=== PATIENT | male | born 1970 | race Two or more races ===

== ENCOUNTER 2020-02-03 15:26 | Emergency (ER) | payer OTHER, SELFPAY ==
[2020-02-03 17:16] VITALS: BP 134/96; PULSE 87; RESP 18; TEMP 36.8; O2SAT 100; BMI 21.7
--- NOTE | 2020-02-03 22:31 | PC.NURSE ---
PT FOUND TO LWT AT THIS TIME DURING REASSESSMENT. PATIENT AND CAREGIVER NOT IN BATHROOMS OR SITTING OUTSIDE ED.
== END 2020-02-03 23:11 | disposition left against medical advice (07) ==
LOC: HO.ED 22:50
PROVIDERS: Emergency Provider Internal Medicine; PCP Internal Medicine
DX: S61.213A Laceration without foreign body of left middle finger without damage to nail, initial encounter (principal); L03.012 Cellulitis of left finger; M79.645 Pain in left finger(s); Y28.9XXA Contact with unspecified sharp object, undetermined intent, initial encounter; Y93.9 Activity, unspecified; Y92.9 Unspecified place or not applicable
CPT/HCPCS: 99281; 99282

== ENCOUNTER 2020-02-04 16:58 | Emergency (ER) | payer OTHER, SELFPAY ==
--- NOTE | 2020-02-04 | XR_ITS ---
EXAMINATION: XR FINGER, LEFT CLINICAL INFORMATION: Laceration. Nonverbal. Appears cellulitic. COMPARISON: None TECHNIQUE: Three views of the left long finger. FINDINGS: Diffuse osteopenia. There is swelling of the proximal aspect of the third digit. No radiopaque foreign body or soft tissue gas. No fracture or dislocation seen. The third proximal interphalangeal joint remains in flexion and third distal interphalangeal joint and extension on all images, limiting evaluation. IMPRESSION: Third digit soft tissue swelling but no acute osseous abnormality seen.
[2020-02-04 17:33] VITALS: BP 140/79; PULSE 98; RESP 16; TEMP 36.6; O2SAT 99; BMI 22.8
--- NOTE | 2020-02-04 19:53 | ED.WOUNDLAC ---
HPI - Wound/Laceration General Chief Complaint: Wound/Laceration Stated Complaint: RED INFLAMED SKIN/FINGER Time Seen by Provider: 02/04/20 18:42 Source: patient and family ( sister who is the featheredger and reducer machine/guardian) Mode of arrival: ambulatory Limitations: language barrier (Patient is nonverbal) History of Present Illness HPI narrative: 49-year-old female presenting to the ED with complaints of a laceration that occurred approximately 2 days ago to left middle finger with tender to palpation, warmth and mild swelling. Denies any fevers or any other symptoms complaints or concerns at this time. Related Data Home Medications Medication Instructions Recorded Confirmed blood sugar diagnostic #10 ea 02/04/20 docusate sodium 100 mg capsule 100 mg PO BID 02/04/20 mirtazapine 15 mg tablet 15 mg PO BEDTIME 02/04/20 Previous Rx's Medication Instructions Recorded cephalexin 500 mg PO Q8H 10 Days #300 ml 02/04/20 doxycycline calcium 10 ml PO BID 10 Days #200 ml 02/04/20 Allergies Allergy/AdvReac Type Severity Reaction Status Date / Time No Known Allergies Allergy Mild NONE Verified 02/04/20 17:33 Review of Systems Review of Systems: Yes all other systems are reviewed and are negative Constitutional: Constitutional: Reports as per HPI, Denies fever(s) and Denies weakness Eyes: Eyes: Reports as per HPI ENT: Reports as per HPI Cardiovascular: Cardiovascular: Reports as per HPI Respiratory: Respiratory: Reports as per HPI Gastrointestinal: Gastrointestinal: Reports as per HPI Genitourinary: Genitourinary: Reports as per HPI Musculoskeletal: Musculoskeletal: Reports as per HPI, Denies deformity, Reports arthralgias, Reports joint swelling, Denies limited range of motion, Denies muscle weakness, Denies numbness, Denies stiffness and Denies tingling Integumentary/Breasts: Skin/Breast: Reports as per HPI Neurologic: Reports as per HPI, Denies numbness, Denies tingling and Denies weakness Psychiatric: Psychiatric: Reports as per HPI Endocrine: Endocrine: Reports as per HPI Hematologic/Lymphatic: Hematologic/Lymphatic: Reports as per HPI Allergic/Immunologic: Allergic/Immunologic: Reports as per HPI [facility] Past Medical History Attestation statement: The following information was validated with the patient. Medical History Diabetes Hyperlipidemia No known health problems Social History Social History Alcohol intake: never Smoked in Last 30 Days: No Use of substances other than those prescribed or required for medical reasons: No Advance Directives: No Advance Directives Information Provided: Yes Physical Exam Vital Signs and I&O and Narrative: Vital Signs and I&O: Vital Signs Temp 98 F 02/04/20 17:33 Pulse 98 02/04/20 17:33 Resp 16 02/04/20 17:33 BP 140/79 H 02/04/20 17:33 Pulse Ox 99 02/04/20 17:33 Intake & Output 02/04/20 02/04/20 02/05/20 06:59 18:59 06:59 Weight 68 kg Body Mass Index 22.8 Const: General: cooperative, healthy appearing, comfortable, no acute distress, well developed, alert, awake and Physically active Nutritional Appearance: average body habitus and well nourished Orientation/consciousness: patient oriented x3 Limitations: language barrier ( Nonverbal due to learning disorder) HENMT: Head: Yes normal to inspection, Yes No palpable skull fracture present, Yes normocephalic and Yes atraumatic Ears: hearing grossly normal bilaterally General nose exam: Normal external nose present Face and sinus: Yes normal facial exam Mouth: moist mucous membranes Eyes: General: appearance normal, both eyes and all related structures Visual Allen: normal visual allen by confrontation Alignment and Position: alignment normal Periorbital: periorbital findings normal Eyelids: Yes eyelids normal Conjunctivae: conjunctivae normal Sclerae: sclerae normal Pupils: Equal, round and reactive pupils present EOM: EOMs intact bilaterally Neck: Neck: Yes normal visual inspection, Yes full ROM, Yes no lymphadenopathy, Yes no meningeal signs, Yes trachea midline and Yes supple Chest: Chest palpation & inspection: normal inspection of the chest Resp: Effort & Inspection: normal respiratory effort and able to speak in complete sentences Auscultation: clear to auscultation bilaterally, no crackles, no rales, no rhonchi and no wheezes Cardio: Rate: regular rate Rhythm: regular rhythm Heart sounds: S1 normal heart sound present and S2 normal heart sound present Peripheral pulses: Peripheral pulses 2+ throughout GI: Inspection: Yes normal to inspection Palpation (GI): Soft to palpation, nontender and No hepatosplenomegaly present Percussion: Yes normal to percussion Auscultation: normal bowel sounds : General: Yes no CVA tenderness Back/Spine/Pelvis: Back: no CVA tenderness Cervical Spine: normal cervical lordosis and cervical ROM normal Thoracic/Lumbar Spine: thoracic and lumbar spine normal to inspection and thoraco-lumbar ROM normal Skin: General skin exam: no rashes or lesions noted, elasticity normal and turgor normal Trauma: no lacerations or abrasions Wounds: no wounds Hair: normal Nails: normal Neuro: General: patient oriented x3 and no meningeal signs Cranial nerves: Yes CN's II-XII intact bilaterally and Yes Equal, round and reactive pupils present Cognition (Neuro): normal cognition Gait exam (Neuro): Normal gait present Motor exam (neuro): 5/5 motor strength present throughout Extrem: General: Yes normal to inspection, Yes full ROM, Yes capillary refill normal, Yes no clubbing, cyanosis or edema, No no pedal edema, No no calf tenderness, Yes normal gait and No edema Right upper extremity: normal to inspection, full ROM and normal capillary refill; no edema Left upper extremity: normal to inspection, full ROM, normal capillary refill and hand Details: normal capillary refill, neurosensory exam normal, tendon exam normal, tenderness, warmth, swelling and laceration ( to left middle finger at the proximal aspect Mendez aspect right at crease of the joint with protrusion of tissue. No streaking/induration / fluctuance noted.); no edema Right lower extremity: normal to inspection, full ROM and normal capillary refill; no edema Left lower extremity: normal to inspection, full ROM and normal capillary refill; no edema Psych: Appearance: grossly normal and well kempt Mental Status: mental status grossly normal Speech and movement: Normal speech and movement present and Clear speech present Affect: normal affect Attitude: cooperative Thought process: Normal thought process present Thought content: Normal thought content present Insight: Good insight present (Psych) Judgement: Good judgement present (Psych) Course Course Course Narrative: X-ray negative for any acute fractures or any other acute processes only mild soft tissue swelling. Will DC home with antibiotics and symptomatic treatment along with instructions to follow-up with wound clinic instructions return if any new or worsening symptoms. Patient and sister who is guardian at bedside understands agrees the plan. MDM - Wound/Laceration MDM Narrative Medical decision making narrative: 49-year-old female presenting to the ED with complaints of a laceration that occurred approximately 2 days ago to left middle finger with tender to palpation, warmth and mild swelling. Denies any fevers or any other symptoms complaints or concerns at this time. - Concern for Fracture versus osteomyelitis versus cellulitic infection versus foreign bodies. - Plan: Xray Then cleaned the wound and placed Steri-Strips. Discharge Plan Discharge Clinical Impression: Cellulitis, Laceration Patient Disposition: Home, Self-Care Instructions: Cellulitis (ED) Additional Instructions: please follow-up with [facility] at [address] [place] [address] in [facility] #[id number] within the next 2 days. Prescriptions: New doxycycline calcium 50 mg/5 mL syrup 10 ml PO BID 10 Days Qty: 200 RF: 0 cephalexin 250 mg/5 mL suspension for reconstitution 500 mg PO Q8H 10 Days Qty: 300 RF: 0 Print Language: Maori
[2020-02-04 20:33] VITALS: BP 128/76; PULSE 69; RESP 16; TEMP 37.1; O2SAT 99
== END 2020-02-04 20:30 | disposition home or self-care (01) ==
PROVIDERS: Emergency Provider Internal Medicine; PCP Internal Medicine
DX: L03.012 Cellulitis of left finger (principal); M79.645 Pain in left finger(s)
CPT/HCPCS: 73140; 99283; 99284

== ENCOUNTER 2020-02-07 12:09 | Outpatient (RCR) | payer OTHER, SELFPAY | END 2020-03-12 13:02 | disposition home or self-care (01) | LOC: HO.WCC 12:09 | PROVIDERS: PCP Internal Medicine; Visit Provider Physician Assistant Surgical | DX: S65.21 Laceration of superficial palmar arch (principal); I10 Essential (primary) hypertension; E11.9 Type 2 diabetes mellitus without complications; Z79.84 Long term (current) use of oral hypoglycemic drugs | CPT/HCPCS: 99212 ==

== ENCOUNTER 2021-08-12 12:38 | Outpatient (REF) | payer OTHER, SELFPAY ==
[2021-08-12 13:00] LABS: MANUAL DIFF FLAG NO
[2021-08-12 13:23] LABS: Basophils Percent Auto 0.5 % (0-2); Eosinophils Absolute Auto 0.4 X10*3/uL (0.0-0.4); Eosinophils Percent Auto 6.1 % (0-4); Hematocrit 40.1 % (42.0-52.0); Imm Gran Abs Auto 0.02 X10*3/uL (0.00-0.03); Imm Gran Pct Auto 0.3 % (0.0-0.4); Lymphocytes Absolute Auto 1.7 X10*3/uL (1.2-4.9); Lymphocytes Percent Auto 29.8 % (20-40); Mean Corpuscular HGB Conc 32.4 g/dl (31.0-36.0); Mean Corpuscular Hemoglobin 29.9 pg (27.0-33.0); Mean Corpuscular Volume 92.2 fL (80.0-98.0); Mean Platelet Volume 11.2 fL (9.4-12.4); Monocytes Absolute Auto 0.5 X10*3/uL (0.1-1.2); Monocytes Percent Auto 8.5 % (2-11); Neutrophils Absolute Auto 3.1 x10*3/uL (2.0-8.3); Neutrophils Percent Auto 54.8 % (45-73); Platelet Count 193 X10*3/uL (160-400); Red Blood Count 4.35 X10*6/uL (4.60-5.80); Red Cell Distribution Width 13.1 % (11.0-16.0); White Blood Count 5.7 X10*3/uL (4.8-10.8)
[2021-08-12 13:30] LABS: Estimated Average Glucose 114 mg/dL; Hemoglobin A1c % 5.6 %
[2021-08-12 13:55] LABS: Appearance Urine CLEAR; Color Urine YELLOW; Glucose Urine UA NEG (NEG); Leukocyte Esterase Urine NEG (NEG); Nitrite Urine NEG (NEG); Specific Gravity - Urine 1.025 (1.005-1.025); Urine Blood NEG (NEG); Urine Ketones NEG (NEG); Urine Protein NEG (NEG-TRACE)
[2021-08-12 14:05] LABS: Prostate Specific Antigen Scr 1.08 ng/mL (<0.05-4.0); TSH reflex Free T4 3.84 uIU/mL (0.32-4.0); Vitamin D 25-OH Total 13.5 ng/mL (>30)
[2021-08-12 14:08] LABS: Alanine Aminotransferase 17 U/L (0-40); Albumin Level 4.5 g/dL (3.5-5.0); Alkaline Phosphatase 65 U/L (39-117); Anion Gap 11 (12-20); Aspartate Amino Transferase 16 U/L (5-37); Blood Urea Nitrogen 20 mg/dL (9-16); Calcium 9.7 mg/dL (8.4-10.2); Carbon Dioxide 28 mmol/L (22-29); Chloride 105 mmol/L (96-108); Cholesterol 216 mg/dL; Estimated Glomerular Filt Rate > 60; Glucose Fasting 100 mg/dL (60-99); HDL Cholesterol 55 mg/dL; LDL Cholesterol Calculated 131 mg/dl; Potassium 4.2 mmol/L (3.3-5.1); Sodium 140 mmol/L (135-145); Total Protein 7.4 g/dL (6.5-8.0); Triglycerides 154 mg/dL
[2021-08-12 14:36] LABS: Creatinine Urine 181.08 mg/dL; Microalbum/Creatinine Ratio Ur 7.7 ug/mg cr
== END 2021-08-12 12:39 | disposition home or self-care (01) ==
LOC: HO.LAB 12:38
PROVIDERS: PCP Internal Medicine; Visit Provider Internal Medicine
DX: Z00.00 Encounter for general adult medical examination without abnormal findings (principal); Z12.5 Encounter for screening for malignant neoplasm of prostate; I10 Essential (primary) hypertension; E78.00 Pure hypercholesterolemia, unspecified; E55.9 Vitamin D deficiency, unspecified; E11.9 Type 2 diabetes mellitus without complications
CPT/HCPCS: 36415; 80053; 80061; 81003; 82043; 82306; 83036; 84153; 84443; 85025

== ENCOUNTER 2022-01-26 13:32 | Outpatient (REF) | payer OTHER, SELFPAY ==
[2022-01-26 16:43] LABS: Hematocrit 42.6 % (42.0-52.0); Hemoglobin 13.7 g/dl (14.0-18.0); Mean Corpuscular HGB Conc 32.2 g/dl (31.0-36.0); Mean Corpuscular Hemoglobin 29.7 pg (27.0-33.0); Mean Corpuscular Volume 92.4 fL (80.0-98.0); Mean Platelet Volume 12.4 fL (9.4-12.4); Platelet Count 193 X10*3/uL (160-400); Red Blood Count 4.61 X10*6/uL (4.60-5.80); Red Cell Distribution Width 12.9 % (11.0-16.0)
[2022-01-26 17:02] LABS: Alanine Aminotransferase 21 U/L (0-40); Albumin Level 4.7 g/dL (3.5-5.0); Alkaline Phosphatase 64 U/L (39-117); Anion Gap 17 (12-20); Aspartate Amino Transferase 18 U/L (5-37); Bilirubin Total 0.5 mg/dL (0.0-1.0); Blood Urea Nitrogen 17 mg/dL (9-16); Calcium 9.8 mg/dL (8.4-10.2); Carbon Dioxide 26 mmol/L (22-29); Chloride 104 mmol/L (96-108); Cholesterol 137 mg/dL; Estimated Glomerular Filt Rate > 60; Glucose Fasting 84 mg/dL (60-99); HDL Cholesterol 52 mg/dL; LDL Cholesterol Calculated 36 mg/dl; Potassium 4.6 mmol/L (3.3-5.1); Sodium 142 mmol/L (135-145); Total Protein 7.7 g/dL (6.5-8.0); Triglycerides 247 mg/dL
== END 2022-01-26 13:33 | disposition home or self-care (01) ==
LOC: HO.HMGCLDS 13:32
PROVIDERS: PCP Internal Medicine; Visit Provider Emergency Medicine
DX: E78.00 Pure hypercholesterolemia, unspecified (principal); R53.83 Other fatigue
CPT/HCPCS: 36415; 80053; 80061; 85027

== ENCOUNTER 2022-10-18 12:37 | Outpatient (REF) | payer OTHER, SELFPAY ==
[2022-10-18 12:51] LABS: MANUAL DIFF FLAG NO
[2022-10-18 14:31] LABS: Basophils Percent Auto 0.6 % (0-2); Eosinophils Absolute Auto 0.3 X10*3/uL (0.0-0.4); Eosinophils Percent Auto 4.5 % (0-4); Hematocrit 42.3 % (42.0-52.0); Hemoglobin 13.4 g/dl (14.0-18.0); Imm Gran Abs Auto 0.02 X10*3/uL (0.00-0.03); Imm Gran Pct Auto 0.3 % (0.0-0.4); Lymphocytes Absolute Auto 1.7 X10*3/uL (1.2-4.9); Lymphocytes Percent Auto 26.3 % (20-40); Mean Corpuscular HGB Conc 31.7 g/dl (31.0-36.0); Mean Corpuscular Volume 94.8 fL (80.0-98.0); Mean Platelet Volume 12.1 fL (9.4-12.4); Monocytes Absolute Auto 0.5 X10*3/uL (0.1-1.2); Monocytes Percent Auto 7.8 % (2-11); Neutrophils Absolute Auto 3.9 x10*3/uL (2.0-8.3); Neutrophils Percent Auto 60.5 % (45-73); Platelet Count 198 X10*3/uL (160-400); Red Blood Count 4.46 X10*6/uL (4.60-5.80); Red Cell Distribution Width 13.2 % (11.0-16.0); White Blood Count 6.5 X10*3/uL (4.8-10.8)
[2022-10-18 14:50] LABS: Appearance Urine Clear; Color Urine Yellow; Glucose Urine UA Negative (Negative); Leukocyte Esterase Urine Negative (Negative); Nitrite Urine Negative (Negative); PH 6.5 (5.0-9.0); Specific Gravity - Urine 1.025 (1.005-1.025); Urine Blood Negative (Negative); Urine Ketones Negative (Negative); Urine Protein Negative (Neg-Trace)
[2022-10-18 14:58] LABS: Estimated Average Glucose 105 mg/dL; Hemoglobin A1c % 5.3 %
[2022-10-18 15:42] LABS: Alanine Aminotransferase 13 U/L (0-40); Albumin Level 4.5 g/dL (3.5-5.0); Alkaline Phosphatase 63 U/L (39-117); Anion Gap 12 (12-20); Aspartate Amino Transferase 16 U/L (5-37); Bilirubin Total 1.1 mg/dL (0.0-1.0); Blood Urea Nitrogen 22 mg/dL (9-16); Calcium 10.1 mg/dL (8.4-10.2); Carbon Dioxide 25 mmol/L (22-29); Chloride 107 mmol/L (96-108); Cholesterol 204 mg/dL; Estimated Glomerular Filt Rate > 60; Glucose Fasting 73 mg/dL (60-99); HDL Cholesterol 62 mg/dL; LDL Cholesterol Calculated 117 mg/dl; Potassium 4.1 mmol/L (3.3-5.1); Sodium 140 mmol/L (135-145); Total Protein 7.7 g/dL (6.5-8.0); Triglycerides 128 mg/dL
[2022-10-18 15:49] LABS: TSH reflex Free T4 4.91 uIU/mL (0.32-4.0); Vitamin D 25-OH Total 22.9 ng/mL (>30)
[2022-10-18 16:33] LABS: Free T4 (Free Thyroxine) 0.94 ng/dL (0.71-1.85)
== END 2022-10-18 12:38 | disposition home or self-care (01) ==
LOC: HO.LAB 12:37
PROVIDERS: PCP Internal Medicine; Visit Provider Internal Medicine
DX: E78.00 Pure hypercholesterolemia, unspecified (principal); E11.9 Type 2 diabetes mellitus without complications; E55.9 Vitamin D deficiency, unspecified; R30.0 Dysuria; I10 Essential (primary) hypertension
CPT/HCPCS: 36415; 80053; 80061; 81003; 82306; 83036; 84439; 84443; 85025

== ENCOUNTER 2023-01-04 09:37 | Emergency (ER) | payer OTHER, SELFPAY ==
[2023-01-04 10:24] VITALS: BP 137/75; PULSE 62; RESP 18; TEMP 36.6; O2SAT 99; BMI 23.6
[2023-01-04 11:45] LABS: MANUAL DIFF FLAG NO
[2023-01-04 11:47] LABS: Basophils Percent Auto 0.6 % (0-2); Eosinophils Absolute Auto 0.4 X10*3/uL (0.0-0.4); Eosinophils Percent Auto 5.4 % (0-4); Hematocrit 39.2 % (42.0-52.0); Hemoglobin 12.6 g/dl (14.0-18.0); Imm Gran Abs Auto 0.02 X10*3/uL (0.00-0.03); Imm Gran Pct Auto 0.3 % (0.0-0.4); Lymphocytes Absolute Auto 2.7 X10*3/uL (1.2-4.9); Lymphocytes Percent Auto 40.8 % (20-40); Mean Corpuscular HGB Conc 32.1 g/dl (31.0-36.0); Mean Corpuscular Hemoglobin 30.1 pg (27.0-33.0); Mean Corpuscular Volume 93.6 fL (80.0-98.0); Mean Platelet Volume 11.2 fL (9.4-12.4); Monocytes Absolute Auto 0.6 X10*3/uL (0.1-1.2); Monocytes Percent Auto 9.5 % (2-11); Neutrophils Absolute Auto 2.9 x10*3/uL (2.0-8.3); Neutrophils Percent Auto 43.4 % (45-73); Platelet Count 147 X10*3/uL (160-400); Red Blood Count 4.19 X10*6/uL (4.60-5.80); Red Cell Distribution Width 12.7 % (11.0-16.0); White Blood Count 6.6 X10*3/uL (4.8-10.8)
[2023-01-04 11:54] LABS: Appearance Urine Clear; Color Urine Yellow; Glucose Urine UA Negative (Negative); Leukocyte Esterase Urine Negative (Negative); Nitrite Urine Negative (Negative); PH 6.5 (5.0-9.0); Specific Gravity - Urine 1.025 (1.005-1.025); Urine Blood Negative (Negative); Urine Ketones Negative (Negative); Urine Protein Negative (Neg-Trace)
[2023-01-04 12:10] LABS: Alanine Aminotransferase 14 U/L (0-40); Albumin Level 4.3 g/dL (3.5-5.0); Alkaline Phosphatase 50 U/L (39-117); Anion Gap 11 (12-20); Aspartate Amino Transferase 16 U/L (5-37); Bilirubin Direct 0.2 mg/dL (0.0-0.5); Bilirubin Total 0.9 mg/dL (0.0-1.0); Blood Urea Nitrogen 17 mg/dL (9-16); Calcium 9.6 mg/dL (8.4-10.2); Carbon Dioxide 29 mmol/L (22-29); Chloride 107 mmol/L (96-108); Creatinine Clr Calc Pharmacy 73.3; Estimated Glomerular Filt Rate > 60; Glucose Random 78 mg/dL (60-115); Potassium 3.4 mmol/L (3.3-5.1); Sodium 144 mmol/L (135-145)
--- NOTE | 2023-01-04 12:46 | ED.GENADULT ---
HPI - General Adult General Chief complaint: Abdominal Pain Stated complaint: legs swollen Time Seen by Provider: 01/04/23 12:45 Source: patient, family, RN notes reviewed and old records reviewed Mode of arrival: ambulatory History of Present Illness HPI narrative: 52-year-old male with a past medical history of diabetes, insomnia, schizophrenia, HLD, cognitive impairment, presenting to the ED with sister c/o bilaterally swollen LE x2-3 days, decreased PO intake, and dark/red urine. History obtained from sister due to baseline cognitive impairment. Sister reports patient also pointing to left side. Denies known fever/chills, nausea/vomiting, diarrhea, CP/SOB Onset (ago): day(s) Related Data Home Medications Medication Instructions Recorded Confirmed blood sugar diagnostic #10 ea 02/04/20 10/14/22 docusate sodium 100 mg capsule 100 mg PO BID 02/04/20 10/14/22 aripiprazole 5 mg tablet 5 mg PO BEDTIME 10/14/22 10/14/22 prazosin 1 mg capsule 1 mg PO QPM 10/14/22 10/14/22 trazodone 50 mg tablet 50 mg PO BEDTIME PRN 10/14/22 10/14/22 Previous Rx's Medication Instructions Recorded mirtazapine 15 mg disintegrating 15 mg PO BEDTIME 30 days #30 tabs 10/24/20 tablet blood-glucose meter (FreeStyle #1 ea 08/11/21 Lite Meter kit) metformin 500 mg tablet,extended 500 mg PO DAILY 30 days #30 tabs 10/01/21 release 24 hr blood sugar diagnostic (FreeStyle 1 strip miscellaneous TID #100 10/29/21 Lite Strips) strips atorvastatin 10 mg tablet 10 mg PO BEDTIME 30 days #30 tabs 11/05/21 Allergies Allergy/AdvReac Type Severity Reaction Status Date / Time No Known Allergies Allergy Mild NONE Verified 10/14/22 13:27 Review of Systems Review of Systems: Constitutional: No Fever, No Chills, No Fatigue, No Malaise ENT/Mouth: No Ear Pain, No Nasal Congestion, No sore throat, No Rhinorrhea, No Swallowing Difficulty Eyes: No Eye Pain, No Swelling, No Redness, No Vision Changes Cardiovascular: No Chest Pain, No SOB,+Edema, No Palpitations Respiratory: No Cough, No Sputum, No Dyspnea Gastrointestinal: No Nausea, No Vomiting, No Diarrhea, No Constipation, No Abdominal pain Genitourinary: No Dysuria, No Urinary Frequency, +Hematuria, No Flank Pain, No Urinary Flow Changes Musculoskeletal: No joint pain, No Myalgias, No Joint Swelling Skin: No Skin Lesions, No rash Neuro: No Weakness, No Headache Yes all other systems are reviewed and are negative Constitutional: Constitutional: Reports as per [facility] Past Medical History Attestation statement: The following information was validated with the patient. Source: old records reviewed Medical History Abdominal pain Constipation Diabetes mellitus Insomnia Mixed hyperlipidemia Schizophrenia Surgical History No pertinent past surgical history Family History Family History Father Chronic mental illness Hypertension Diabetes CVD (cardiovascular disease) Mother Diabetes Hypertension CVD (cardiovascular disease) Sister Diabetes Social History Social History Housing: House Alcohol intake: never Patient Tobacco Use Status: Never used Tobacco Smoked in Last 30 Days: No e-Cigarette/Vaping Use: Never Used Second Hand Smoke Exposure: No Use of substances other than those prescribed or required for medical reasons: No Advance Directives: No service: No Current occupational status: disabled Cognitive needs: Yes Hearing needs: No Vision needs: No Physical Exam ED Vital Signs: Vital Signs - 24 hr 01/04/23 10:24 01/04/23 12:54 Temperature 98 F 98.6 F Pulse Rate 62 72 Respiratory Rate 18 16 Blood Pressure 137/75 136/80 Pulse Oximetry 99 98 Oxygen Delivery Method Room Air Room Air BMI result Body Mass Index 23.6 Const General: cooperative and no acute distress Orientation/consciousness: patient oriented x3 Limitations: no limitations HENMT Head: Yes normal to inspection and Yes atraumatic Ears: hearing grossly normal bilaterally General nose exam: Normal external nose present Face and sinus: Yes normal facial exam Eyes General: appearance normal, both eyes and all related structures EOM: EOMs intact bilaterally Neck Neck: Yes normal visual inspection and Yes no meningeal signs Chest Chest palpation & inspection: normal inspection of the chest, no crepitus and no tenderness Resp Effort & Inspection: normal respiratory effort and no respiratory distress Auscultation: clear to auscultation bilaterally, no rhonchi and no wheezes Cardio Rate: regular rate Heart sounds: S1 normal heart sound present and S2 normal heart sound present GI Inspection: Yes normal to inspection Palpation (GI): Soft to palpation, nontender, no guarding and not rigid General: Yes no CVA tenderness Back/Spine/Pelvis Back: no CVA tenderness Skin Rashes: no rashes Wounds: no wounds Neuro General: patient oriented x3, tone normal and no meningeal signs Cranial nerves: Yes CN's II-XII intact bilaterally Gait exam (Neuro): Normal gait present Extrem Other: +mild swelling noted to bilateral ankles, no pitting edema, no calf ttp Course Course Course Narrative: -1310--patient refusing to take his pants off for ultrasound, ultrasound canceled -9--no leukocytosis, H&H stable. Labs otherwise reassuring, BNP WNL, CPK WNL -UA not infected, no blood Results discussed with patient and sister with marshmallow maker including worrisome signs and symptoms and strict return precautions, and when to return to the emergency department. They verbalized understanding and feel safe for discharge at this time. Medical Decision Making Medical Decision Making [facility] Narrative: 52-year-old male with a past medical history of diabetes, insomnia, schizophrenia, HLD, cognitive impairment, presenting to the ED with sister c/o bilaterally swollen LE x2-3 days, decreased PO intake, and dark/red urine. On exam vital signs stable, NAD, nontoxic appearing, bilateral ankle swelling noted without LE pitting edema. No calf tenderness. Chest/abdomen without rash/erythema or tenderness, abdomen soft. No CVAT. Concern for ?DVT (although of lower suspicion) vs dependent edema vs UTI vs rhabdomyolysis vs renal stone. Lower suspicion for pyelo, pancreatitis, cholecystitis/advises without tenderness on exam. Unlikely fracture/sprain. Rule out metabolic abnormalities including dehydration. Low suspicion for pain/ACS. Plan: Labs, UA, venous duplex ultrasound Please refer to course for remaining clinical decision making, interpretation of labs/imaging results, and discussions with consultants and/or family members. Differential Diagnosis Differential Diagnoses: The differential diagnosis associated with the presentation includes As above Admission/Observation Consideration of admission/observation: Escalation of care including admission/observation considered Lab Data [facility] Lab Attestation statement: I reviewed the patient's lab results. 01/04/23 11:31 01/04/23 11:31 Labs: Lab Results 01/04/23 01/04/23 01/04/23 Range/Units 11:31 11:31 11:31 WBC 6.6 (4.8-10.8) X10*3/uL RBC 4.19 L (4.60-5.80) X10*6/uL Hgb 12.6 L (14.0-18.0) g/dl Hct 39.2 L (42.0-52.0) % MCV 93.6 (80.0-98.0) fL MCH 30.1 (27.0-33.0) pg MCHC 32.1 (31.0-36.0) g/dl RDW 12.7 (11.0-16.0) % Plt Count 147 L D (160-400) X10*3/uL MPV 11.2 (9.4-12.4) fL Immature Gran % (Auto) 0.3 (0.0-0.4) % Neut % (Auto) 43.4 L (45-73) % Lymph % (Auto) 40.8 H (20-40) % [place] % (Auto) 9.5 (2-11) % Eos % (Auto) 5.4 H (0-4) % Baso % (Auto) 0.6 (0-2) % Lymph # (Auto) 2.7 (1.2-4.9) X10*3/uL [place] # (Auto) 0.6 (0.1-1.2) X10*3/uL Eos # (Auto) 0.4 (0.0-0.4) X10*3/uL Baso # (Auto) 0.0 (0.0-0.2) X10*3/uL Abs Immat Gran (auto) 0.02 (0.00-0.03) X10*3/uL Absolute Neuts (auto) 2.9 (2.0-8.3) x10*3/uL Absolute Nucleated RBC 0.000 (0.0-0.012) X10*3/uL Nucleated RBC % (auto) 0.0 (0.0-0.2) /100WBC Sodium 144 (135-145) mmol/L Potassium 3.4 (3.3-5.1) mmol/L Chloride 107 (96-108) mmol/L Carbon Dioxide 29 (22-29) mmol/L Anion Gap 11 L (12-20) BUN 17 H (9-16) mg/dL Creatinine 1.14 (0.5-1.4) mg/dL Estim Creat Clear Calc 73.3 Estimated GFR > 60 Random Glucose 78 (60-115) mg/dL Calcium 9.6 (8.4-10.2) mg/dL Magnesium 2.2 (1.6-2.6) mg/dL Total Bilirubin 0.9 (0.0-1.0) mg/dL Direct Bilirubin 0.2 (0.0-0.5) mg/dL AST 16 (5-37) U/L ALT 14 (0-40) U/L Alkaline Phosphatase 50 (39-117) U/L Total Creatine Kinase 93 (38-174) U/L B-Natriuretic Peptide (<100) pg/mL Total Protein 7.0 (6.5-8.0) g/dL Albumin 4.3 (3.5-5.0) g/dL Lipase 27 (8-78) U/L Urine Color Yellow Urine Appearance Clear Urine pH 6.5 (5.0-9.0) Ur Specific [place] 1.025 (1.005-1.025) Urine Protein Negative (Neg-Trace) mg/dL Urine Glucose (UA) Negative (Negative) mg/dL Urine Ketones Negative (Negative) mg/dL Urine Blood Negative (Negative) Urine Nitrite Negative (Negative) Ur Leukocyte Esterase Negative (Negative) 01/04/23 Range/Units 11:31 WBC (4.8-10.8) X10*3/uL RBC (4.60-5.80) X10*6/uL Hgb (14.0-18.0) g/dl Hct (42.0-52.0) % MCV (80.0-98.0) fL MCH (27.0-33.0) pg MCHC (31.0-36.0) g/dl RDW (11.0-16.0) % Plt Count (160-400) X10*3/uL MPV (9.4-12.4) fL Immature Gran % (Auto) (0.0-0.4) % Neut % (Auto) (45-73) % Lymph % (Auto) (20-40) % [place] % (Auto) (2-11) % Eos % (Auto) (0-4) % Baso % (Auto) (0-2) % Lymph # (Auto) (1.2-4.9) X10*3/uL [place] # (Auto) (0.1-1.2) X10*3/uL Eos # (Auto) (0.0-0.4) X10*3/uL Baso # (Auto) (0.0-0.2) X10*3/uL Abs Immat Gran (auto) (0.00-0.03) X10*3/uL Absolute Neuts (auto) (2.0-8.3) x10*3/uL Absolute Nucleated RBC (0.0-0.012) X10*3/uL Nucleated RBC % (auto) (0.0-0.2) /100WBC Sodium (135-145) mmol/L Potassium (3.3-5.1) mmol/L Chloride (96-108) mmol/L Carbon Dioxide (22-29) mmol/L Anion Gap (12-20) BUN (9-16) mg/dL Creatinine (0.5-1.4) mg/dL Estim Creat Clear Calc Estimated GFR Random Glucose (60-115) mg/dL Calcium (8.4-10.2) mg/dL Magnesium (1.6-2.6) mg/dL Total Bilirubin (0.0-1.0) mg/dL Direct Bilirubin (0.0-0.5) mg/dL AST (5-37) U/L ALT (0-40) U/L Alkaline Phosphatase (39-117) U/L Total Creatine Kinase (38-174) U/L B-Natriuretic Peptide 18 (<100) pg/mL Total Protein (6.5-8.0) g/dL Albumin (3.5-5.0) g/dL Lipase (8-78) U/L Urine Color Urine Appearance Urine pH (5.0-9.0) Ur Specific [place] (1.005-1.025) Urine Protein (Neg-Trace) mg/dL Urine Glucose (UA) (Negative) mg/dL Urine Ketones (Negative) mg/dL Urine Blood (Negative) Urine Nitrite (Negative) Ur Leukocyte Esterase (Negative) Radiology Impression Discussion of test interpretation with radiology: I have reviewed the radiologist's reading. Independent Historian Clinical information obtained from an independent historian. History obtained from or confirmed by: Other (sister) External Record Review External record reviewed: Inpatient record, Office record, Outpatient record, Prior outpatient labs, Prior outpatient radiology, Primary care record and Outside ED record Tests considered The following testing was considered but not selected: As above Chronic Conditions Patient?s care impacted by: Other (cognitive impairment ) Discharge Plan Discharge Clinical Impression: Ankle swelling Patient Disposition: Home, Self-Care Instructions: Swollen Joint (ED) Additional Instructions: Blood work and urine were reassuring Elevate legs at home Consider wearing compression stockings Please follow-up with primary care doctor If symptoms persist or worsen return to the ED Encourage fluid intake Los an?lisis de toño y orina fueron tranquilizadores. Elevar piernas en casa Considere usar medias de compresi?n Por favor susannah un seguimiento con el m?dico de atenci?n primaria. Si los s?ntomas persisten o empeoran, regrese al servicio de urgencias. Fomentar la ingesta de l?quidos. Prescriptions: No Action mirtazapine 15 mg tablet,disintegrating 15 mg PO BEDTIME 30 Days Qty: 30 5RF metformin 500 mg tablet extended release 24 hr 500 mg PO DAILY 30 Days Qty: 30 5RF FreeStyle Lite Strips Strip 1 strip miscellaneous TID Qty: 100 12RF atorvastatin 10 mg tablet 10 mg PO BEDTIME 30 Days Qty: 30 2RF (DME) FreeStyle Lite Strips Strip See Rx Instructions .ROUTE .MEDSUPPLY Qty: 10 Rx Instructions: As directed docusate sodium 100 mg capsule 100 mg PO BID aripiprazole 5 mg tablet 5 mg PO BEDTIME trazodone 50 mg tablet 50 mg PO BEDTIME PRN prazosin 1 mg capsule 1 mg PO QPM (DME) blood-glucose meter [FreeStyle Lite Meter] Kit See Rx Instructions .Route Qty: 1 0RF Rx Instructions: As directed Referrals: Rasta Barron MD [Primary Care Provider] - 5 days Print Language: Maori
[2023-01-04 12:54] VITALS: BP 136/80; PULSE 72; RESP 16; TEMP 37; O2SAT 98
--- NOTE | 2023-01-04 13:02 | PC.NURSE ---
full time staff interpreter called. pt a&ox3, vss, nsr on the property assessment monitor. pt verbalizing RLE pain that causes him difficulty to walk. pt also c/o dark urine, poor po intake lately, and abdominal pain. tenderness upon palpation. normoactive bs noted upon auscultation. pt has pcp bedside w/ him to answer questions as pt is mentally delayed. pt resting comfortably in no apparent distress. call warren placed within reach.
[2023-01-04 14:04] LABS: Lipase 27 U/L (8-78); Magnesium 2.2 mg/dL (1.6-2.6)
[2023-01-04 14:15] LABS: B Type Natriuretic Peptide 18 pg/mL (<100)
== END 2023-01-04 15:34 | disposition home or self-care (01) ==
PROVIDERS: Physician Assistant; Emergency Provider Emergency Medicine; PCP Internal Medicine
DX: M79.89 Other specified soft tissue disorders (principal); I50.9 Heart failure, unspecified; E11.9 Type 2 diabetes mellitus without complications; E78.2 Mixed hyperlipidemia; G31.84 Mild cognitive impairment of uncertain or unknown etiology; Z79.899 Other long term (current) drug therapy; Z79.84 Long term (current) use of oral hypoglycemic drugs
CPT/HCPCS: 36415; 80048; 80076; 81003; 82550; 83690; 83735; 83880; 85025; 99283; 99284

== ENCOUNTER 2023-04-18 12:48 | Outpatient (AMB) | payer OTHER, SELFPAY ==
--- NOTE | 2023-04-18 13:01 | A.OFFPC_ITS ---
Vital Signs 04/18/23 13:02 Height 5 ft 8 in Weight 144 lb 2 oz BMI 21.9 BP 122/80 Blood Pressure Location Lt brachial Position Sitting Pulse 73 Pulse Source Pulse Oximeter Pulse Oximetry (%) 99 Oxygen Delivery Method Room Air Intake Visit Reasons: 6 month f/u Tax Assessor Required: No Accompanied by: Self / Same As Patient Allergies No Known Allergies Allergy (Mild, Verified 07/14/23 11:38) NONE Medication List - Last Reconciled 04/18/23 by Rasta Barron MD aripiprazole 10 mg PO BEDTIME atorvastatin 10 mg PO BEDTIME 30 days blood sugar diagnostic As directed blood sugar diagnostic (FreeStyle Lite Strips) 1 strip miscellaneous TID blood-glucose meter (FreeStyle Lite Meter kit) As directed docusate sodium 100 mg PO BID lamotrigine 25 mg PO DAILY metformin ER 500 mg PO DAILY 30 days prazosin 1 mg PO QPM trazodone 25 mg PO BID Tobacco use date assessed: 04/18/23 Dental Screening Dental Screen Date: 04/18/23 Did you have a dental visit in the last 12 months?: No Did you have a dental problem in the last 6 months where you did not have access to dental care?: No Was dental information given to patient?: No HPI 6 month f/u HPI Details Patient comes in today for his follow up visit He is accompanied as usual by his sister today, who is his HCP His sister states that patient feels okay and again has no acute issues at present Patient has had no complaints of headaches, dizziness, chest pains or SOB and no recent cough/cold symptoms lately Patient reportedly eats well and has had no problems with bowel or bladder issues although he sometimes stays in the bathroom for a long time - his sister thinks that he may be constipated during these long bathroom sessions No nausea/vomiting, no abdominal pain noted Needs a few of his Rx refilled They would also like to know how patient did on his labs back in September 2023 [facility] [place] Medical History Abdominal pain Constipation Schizophrenia Insomnia Mixed hyperlipidemia Diabetes mellitus Surgical History No pertinent past surgical history Family History Father Chronic mental illness Hypertension Diabetes CVD (cardiovascular disease) Mother Diabetes Hypertension CVD (cardiovascular disease) Sister Diabetes Social History Housing: House Alcohol intake: never Patient Tobacco Use Status: Never used Tobacco e-Cigarette/Vaping Use: Never Used Second Hand Smoke Exposure: No service: No Current occupational status: disabled Cognitive needs: Yes Hearing needs: No Vision needs: No Questionnaire PHQ-9 Over the last 2 weeks, how often have you been bothered by any of the following problems? 1. Little interest or pleasure in doing things: several days 2. Feeling down, depressed, or hopeless: several days 3. Trouble falling or staying asleep, or sleeping too much: several days 4. Feeling tired or having little energy: several days 5. Poor appetite or overeating: several days 6. Feeling bad about yourself - or that you are a failure or have let yourself or your family down: not at all 7. Trouble concentrating on things, such as reading the newspaper or watching television: not at all 8. Moving or speaking so slowly that other people could have noticed. Or the opposite - being so fidgety or restless that you have been moving around a lot more than usual: not at all 9. Thoughts that you would be better off or of hurting yourself in some way: not at all Total score: 5 Depression Screening Interpretation: Positive Depression Screening Follow-up: Existing condition and In treatment Depression Screening Done: Yes [id number] - PHQ-9 Billing: Yes Source: Developed by Drs. Ethan Coreas, Belen Trejo, Carlos Sanchez and colleagues, with an educational shefali from [employer]. Thrive Questionnaire Date Thrive assessed: 04/18/23 I am a: Patient What is your living situation today?: I have a steady place to live Within the past 12 months, did the food you bought not last and you didn't have the money to get more?: Never true Within the past 12 months, did you worry whether your food would run out before you got money to buy more?: Never true Do you have trouble paying for medicines?: No Do you have trouble getting transportation to medical appointments?: No Do you have trouble paying your heating and electricity bill?: No Do you have trouble taking care of your child, family member or friend?: No Do you have trouble with day-to-day activities such as bathing, preparing meals, shopping, managing finances, etc.?: No Are you currently unemployed and looking for a job?: No Are you interested in more education?: No Please select the resources that you would like help with: None Currently or been in a relationship where the following occur: no concerns reported AUDIT C Alcohol Use Questionnaire (AUDIT-C) 1. How often do you have a drink containing alcohol?: Never 3. How often do you have six or more drinks on one occasion?: Never Total Score: 0 Score Reviewed/Action Taken: Yes ELDA-7 AMB Questionnaire ELDA-7 Date ELDA - 7 assessed: 04/18/23 Feeling nervous, anxious, or on edge: 0 = Not at all Not being able to stop or control worryin = Not at all Worrying too much about different things: 0 = Not at all Trouble relaxin = Not at all Being so restless that it is hard to sit still: 0 = Not at all Becoming easily annoyed or irritable: 0 = Not at all Feeling afraid as if something awful might happen: 0 = Not at all Total ELDA-7 score (0-4 normal; 5-9 mild; 10-14 moderate; 15-21 severe): 0 Source: Developed by Drs. Ethan Coreas, Belen Trjeo, Carlos Sanchez and colleagues, with an educational shefali from [employer]. Review of Systems Const Details: Information is obtained primarily from patient's sister and may be somewhat limited as patient is not able to communicate appropriately due to his psychiatric disorder Denies difficulty sleeping, Denies fatigue, Denies fever(s) and Denies headache(s) ENT Denies dysphagia, Denies dizziness, Denies otalgia, Denies headache(s), Denies neck pain, Denies odynophagia and Denies sore throat Card Denies chest pain, Denies palpitations and Denies dyspnea Resp Denies chest congestion, Denies cough and Denies dyspnea GI Denies abdominal pain, Denies constipation, Denies dysphagia, Denies diarrhea, Denies nausea, Denies odynophagia and Denies vomiting Denies dysuria, Denies nocturia and Denies urinary frequency Musc Denies back pain and Denies neck pain Skin/Breast Denies rash Neuro Denies behavioral changes, Denies dizziness and Denies headache(s) Psych Denies behavioral changes Endo Denies fatigue and Denies palpitations Physical exam (Primary Care) Vital Signs: Last Vital Signs Pulse 73 04/18/23 13:02 BP 122/80 04/18/23 13:02 Pulse Ox 99 04/18/23 13:02 Oxygen Delivery Method Room Air 04/18/23 13:02 BMI result Body Mass Index 21.9 Tobacco/Smoking Status: Tobacco use Status Tobacco use date assessed 04/18/23 04/18/23 13:08 Patient Tobacco Use Status Never used Tobacco 04/18/23 13:08 e-Cigarette/Vaping Use Never Used 04/18/23 13:08 PHQ-9: PHQ-9 Score PHQ-9: Total score 5 04/18/23 15:08 Depression Screening Interpretation: Positive Depression Screening Follow-up: Existing condition and In treatment Thrive Assessment: Date of Thrive Assessment Date Thrive assessed 04/18/23 04/18/23 13:08 Currently or been in a relationship where the following occur: no concerns reported Const Other: Physical exam is limited to what patient will allow or is able to do - due to his cognitive/psychiatric disabilities General: no acute distress and alert Limitations: behavioral limitations (non-verbal) HENMT Ears: TM's normal bilaterally and EAC's normal Throat: Yes posterior oropharynx normal and Yes tonsils normal (no TP congestion noted) Neck Neck: Yes no lymphadenopathy and Yes supple Thyroid: Thyroid normal Resp Auscultation: clear to auscultation bilaterally, no rales and no wheezes Cardio Rate: regular rate Rhythm: regular rhythm Heart sounds: no murmurs GI Palpation (GI): Soft to palpation and nontender Auscultation: normal bowel sounds General: Yes no CVA tenderness Back/Spine/Pelvis Back: no CVA tenderness Skin Rashes: no rashes Neuro General: moves all extremities Gait exam (Neuro): Normal gait present Extrem General: Yes no clubbing, cyanosis or edema Results Reviewed Results Reviewed: Laboratory Tests 10/18/22 10/18/22 10/18/22 12:45 12:49 12:49 WBC 6.5 Hgb 13.4 L Hct Plt Count 198 Sodium Potassium Creatinine Estimated GFR Random Glucose Fasting Glucose Hemoglobin A1c % Calcium AST ALT Triglycerides Cholesterol LDL Cholesterol, Calc HDL Cholesterol 25-OH Vitamin D Total TSH Free T4 Ur Specific [place] 1.025 Urine Protein Negative Urine Glucose (UA) Negative Urine Blood Negative Urine Nitrite Negative Ur Leukocyte Esterase Negative 10/18/22 10/18/22 10/18/22 12:49 12:49 12:49 WBC Hgb Hct 42.3 Plt Count Sodium 140 Potassium 4.1 Creatinine 0.97 Estimated GFR Random Glucose Fasting Glucose Hemoglobin A1c % Calcium AST ALT Triglycerides Cholesterol LDL Cholesterol, Calc HDL Cholesterol 25-OH Vitamin D Total TSH Free T4 Ur Specific [place] Urine Protein Urine Glucose (UA) Urine Blood Urine Nitrite Ur Leukocyte Esterase 10/18/22 10/18/22 10/18/22 12:49 12:49 12:49 WBC Hgb Hct Plt Count Sodium Potassium Creatinine Estimated GFR > 60 Random Glucose Fasting Glucose 73 Hemoglobin A1c % 5.3 Calcium 10.1 AST 16 ALT 13 Triglycerides 128 Cholesterol 204 LDL Cholesterol, Calc 117 HDL Cholesterol 62 25-OH Vitamin D Total 22.9 TSH 4.91 H Free T4 0.94 Ur Specific [place] Urine Protein Urine Glucose (UA) Urine Blood Urine Nitrite Ur Leukocyte Esterase 01/04/23 01/04/23 01/04/23 11:31 11:31 11:31 WBC 6.6 Hgb 12.6 L Hct Plt Count 147 L D Sodium 144 Potassium Creatinine Estimated GFR Random Glucose Fasting Glucose Hemoglobin A1c % Calcium AST ALT Triglycerides Cholesterol LDL Cholesterol, Calc HDL Cholesterol 25-OH Vitamin D Total TSH Free T4 Ur Specific [place] Urine Protein Urine Glucose (UA) Urine Blood Urine Nitrite Ur Leukocyte Esterase 01/04/23 01/04/23 01/04/23 11:31 11:31 11:31 WBC Hgb Hct Plt Count Sodium Potassium 3.4 Creatinine 1.14 Estimated GFR > 60 Random Glucose Fasting Glucose Hemoglobin A1c % Calcium AST ALT Triglycerides Cholesterol LDL Cholesterol, Calc HDL Cholesterol 25-OH Vitamin D Total TSH Free T4 Ur Specific [place] Urine Protein Urine Glucose (UA) Urine Blood Urine Nitrite Ur Leukocyte Esterase 01/04/23 11:31 WBC Hgb Hct 39.2 L Plt Count Sodium Potassium Creatinine Estimated GFR Random Glucose 78 Fasting Glucose Hemoglobin A1c % Calcium 9.6 AST ALT Triglycerides Cholesterol LDL Cholesterol, Calc HDL Cholesterol 25-OH Vitamin D Total TSH Free T4 Ur Specific [place] Urine Protein Urine Glucose (UA) Urine Blood Urine Nitrite Ur Leukocyte Esterase Assessment and Plan Assessment & Plan (1) Diabetes mellitus: Code(s): E11.9 - Type 2 diabetes mellitus without complications Qualifiers: Diabetes mellitus complication status: without complication Diabetes mellitus intermediate manager insulin use: without intermediate manager use Diabetes mellitus type: type 2 Qualified Code(s): E11.9 - Type 2 diabetes mellitus without complications Plan: His HgbA1c was most recently at 5.3% a few months ago on 10/18/2022 (in-office HgbA1c was at 5.4% back in March 2022) - goal is < 7.0% Reinforced diabetic diet Continue Metformin 500 mg 1/2 tablet BID (2) Mixed hyperlipidemia: Code(s): E78.2 - Mixed hyperlipidemia Plan: Results of his labs done over the past few months, including those in September 2022, reviewed and discussed with patient's mother Reinforced low cholesterol diet Will recheck his labs and fasting lipids in 6 months for follow-up (3) Constipation: Code(s): K59.00 - Constipation, unspecified Qualifiers: Constipation type: unspecified constipation type Qualified Code(s): K59.00 - Constipation, unspecified Plan: Patient has been reportedly doing better with this lately Encouraged again increased oral fluids and dietary fiber Continue Docusate 100 mg BID Patient's family is instructed to call if his symptoms get worse - may consider abdominal US then for further evaluation (4) Insomnia: Code(s): G47.00 - Insomnia, unspecified Qualifiers: Insomnia type: unspecified Qualified Code(s): G47.00 - Insomnia, unspecified Plan: Continue Trazodone 25 mg BID and Prazosin 1 mg Q HS; is also on Aripiprazole 10 mg Q HS, which may help with his sleep at night Follow up with psychiatry as scheduled (5) Schizophrenia: Code(s): F20.9 - Schizophrenia, unspecified Qualifiers: Schizophrenia type: unspecified Qualified Code(s): F20.9 - Schizophrenia, unspecified Plan: Continue Aripiprazole 10 mg Q HS, Lamotrigine 25 mg QD, Prazosin 1 mg Q HS and Trazodone 25 mg BID Follow up with psychiatry as scheduled Plan To return in 6 months for his next annual physical examination Orders: Orders Complete Blood Count Auto Diff 6 Months I10 - Essential (primary) hypertension TSH reflex Free T4 6 Months E78.00 - Pure hypercholesterolemia, unspecified Hemoglobin A1c 6 Months E11.9 - Type 2 diabetes mellitus without complications Lipid Panel 6 Months E78.00 - Pure hypercholesterolemia, unspecified Comprehensive [place]. Panel Fast 6 Months E78.00 - Pure hypercholesterolemia, unspecified UA CC w/rflx Micro + Cult 6 Months R30.0 - Dysuria Microalbumin, Random (w Creat) 6 Months E11.9 - Type 2 diabetes mellitus without complications Vitamin D 25-OH Total 6 Months E55.9 - Vitamin D deficiency, unspecified Medications: New lamotrigine 25 mg PO DAILY lancets (FreeStyle Lancets) As directed 3 times a day 100 ea 12RF E11.9 - Type 2 diabetes mellitus without complications Refilled metformin ER 500 mg PO DAILY 30 tabs 5RF 30 days blood sugar diagnostic (FreeStyle Lite Strips) 1 strip miscellaneous TID 100 strips 12RF E11.9 - Type 2 diabetes mellitus without complications Coding Level of Care Code Est Pt Level 4 (82076) Diagnoses Type 2 diabetes mellitus without complication, without long-term current use of insulin E11.9 Diabetes mellitus complication status: without complication Diabetes mellitus intermediate manager insulin use: without intermediate manager use Diabetes mellitus type: type 2 Mixed hyperlipidemia E78.2 Constipation, unspecified constipation type K59.00 Constipation type: unspecified constipation type Insomnia, unspecified type G47.00 Insomnia type: unspecified Schizophrenia, unspecified type F20.9 Schizophrenia type: unspecified
[2023-04-18 13:02] VITALS: BP 122/80; PULSE 73; O2SAT 99; BMI 21.9
== END 2023-04-18 13:29 | disposition home or self-care (01) ==
PROVIDERS: PCP Internal Medicine; Visit Provider Internal Medicine
DX: E11.69 Type 2 diabetes mellitus with other specified complication (principal); F20.9 Schizophrenia, unspecified; E78.2 Mixed hyperlipidemia; K59.00 Constipation, unspecified; G47.00 Insomnia, unspecified
CPT/HCPCS: 99214

== ENCOUNTER 2023-07-14 11:00 | Outpatient (AMB) | payer OTHER, SELFPAY ==
--- NOTE | 2023-07-14 11:04 | MHC.PC.OV ---
Vital Signs 07/14/23 11:06 Height 5 ft 8 in Weight 140 lb BMI 21.3 BP 122/72 Blood Pressure Location Lt brachial Position Sitting Pulse 97 Pulse Source Pulse Oximeter Pulse Oximetry (%) 98 Oxygen Delivery Method Room Air Intake Visit Reasons: Medical certification form Intake Note: Patient is here today for medical certification form [employer] Manager Required: Yes [employer] Manager Language: Business Quality Assurance Analyst Name: Zonia([id number]) Information Interpreted: non-clinical & clinical Manager Training: Present Accompanied by: Sister Allergies No Known Allergies Allergy (Mild, Verified 07/14/23 11:38) NONE Medication List - Last Reconciled 07/14/23 by Rasta Barron MD aripiprazole 10 mg PO BEDTIME atorvastatin 10 mg PO BEDTIME 30 days blood sugar diagnostic As directed blood sugar diagnostic (FreeStyle Lite Strips) 1 strip miscellaneous TID blood-glucose meter (FreeStyle Lite Meter kit) As directed docusate sodium 100 mg PO BID lamotrigine 25 mg PO DAILY lancets (FreeStyle Lancets) As directed 3 times a day metformin ER 500 mg PO DAILY 30 days prazosin 1 mg PO QPM trazodone 25 mg PO BID Tobacco use date assessed: 07/14/23 Dental Screening Dental Screen Date: 07/14/23 Did you have a dental visit in the last 12 months?: Yes Did you have a dental problem in the last 6 months where you did not have access to dental care?: No Was dental information given to patient?: Patient has dentist HPI Medical certification form HPI Details Patient comes in today mainly to have his form for medical certificate for guardianship filled out/completed Is accompanied by his sister who, together with her daughter, are applying for guardianship of the patient His sister states that patient has been doing well with no acute issues He still has very limited capacity to interact with others due to his psychiatric and cognitive disabilities, which necessitates the guardianship forms filled out so patient can continue to live at home with his immediate family [facility] Medical History Abdominal pain Constipation Schizophrenia Insomnia Mixed hyperlipidemia Diabetes mellitus Surgical History No pertinent past surgical history Family History Father Chronic mental illness Hypertension Diabetes CVD (cardiovascular disease) Mother Diabetes Hypertension CVD (cardiovascular disease) Sister Diabetes Social History Housing: House Alcohol intake: never Patient Tobacco Use Status: Never used Tobacco e-Cigarette/Vaping Use: Never Used Second Hand Smoke Exposure: No service: No Current occupational status: disabled Cognitive needs: Yes Hearing needs: No Vision needs: No Questionnaire PHQ-9 Over the last 2 weeks, how often have you been bothered by any of the following problems? 1. Little interest or pleasure in doing things: not at all 2. Feeling down, depressed, or hopeless: not at all 3. Trouble falling or staying asleep, or sleeping too much: not at all 4. Feeling tired or having little energy: not at all 5. Poor appetite or overeating: not at all 6. Feeling bad about yourself - or that you are a failure or have let yourself or your family down: not at all 7. Trouble concentrating on things, such as reading the newspaper or watching television: not at all 8. Moving or speaking so slowly that other people could have noticed. Or the opposite - being so fidgety or restless that you have been moving around a lot more than usual: not at all 9. Thoughts that you would be better off or of hurting yourself in some way: not at all Total score: 0 Depression Screening Interpretation: Negative Depression Screening Done: Yes 34822 - PHQ-9 Billing: Yes Source: Developed by Drs. Ethan Coreas, Belen Trejo, Carlos Sanchez and colleagues, with an educational shefali from [employer]. Thrive Questionnaire Date Thrive assessed: 07/14/23 I am a: Patient What is your living situation today?: I have a steady place to live Within the past 12 months, did the food you bought not last and you didn't have the money to get more?: Never true Within the past 12 months, did you worry whether your food would run out before you got money to buy more?: Never true Do you have trouble paying for medicines?: No Do you have trouble getting transportation to medical appointments?: No Do you have trouble paying your heating and electricity bill?: No Do you have trouble taking care of your child, family member or friend?: No Do you have trouble with day-to-day activities such as bathing, preparing meals, shopping, managing finances, etc.?: No Are you currently unemployed and looking for a job?: No Are you interested in more education?: No Currently or been in a relationship where the following occur: no concerns reported THRIVE Score: 0 AUDIT C Alcohol Use Questionnaire (AUDIT-C) 1. How often do you have a drink containing alcohol?: Never Total Score: 0 Score Reviewed/Action Taken: Yes ELDA-7 AMB Questionnaire ELDA-7 Date ELDA - 7 assessed: 07/14/23 Feeling nervous, anxious, or on edge: 0 = Not at all Not being able to stop or control worryin = Not at all Worrying too much about different things: 0 = Not at all Trouble relaxin = Not at all Being so restless that it is hard to sit still: 0 = Not at all Becoming easily annoyed or irritable: 0 = Not at all Feeling afraid as if something awful might happen: 0 = Not at all Total ELDA-7 score (0-4 normal; 5-9 mild; 10-14 moderate; 15-21 severe): 0 Source: Developed by Drs. Ethan Coreas, Belen Trejo, Carlos Sanchez and colleagues, with an educational shefali from [employer]. Review of Systems Const Details: Information is obtained primarily from patient's sister and may be somewhat limited as patient is not able to communicate appropriately due to his psychiatric disorder Denies fatigue, Denies fever(s) and Denies headache(s) ENT Denies dysphagia, Denies dizziness, Denies headache(s), Denies neck pain, Denies odynophagia and Denies sore throat Card Denies chest pain, Denies palpitations and Denies dyspnea Resp Denies cough and Denies dyspnea GI Denies abdominal pain, Denies constipation, Denies dysphagia, Denies diarrhea, Denies nausea, Denies odynophagia and Denies vomiting Denies dysuria, Denies nocturia and Denies urinary frequency Musc Denies back pain and Denies neck pain Skin/Breast Reports dry skin (especially on both feet) and Denies rash Neuro Denies behavioral changes, Denies dizziness and Denies headache(s) Psych Denies behavioral changes Endo Denies fatigue and Denies palpitations Physical exam (Primary Care) Vital Signs: Last Vital Signs Pulse 97 07/14/23 11:06 BP 122/72 07/14/23 11:06 Pulse Ox 98 07/14/23 11:06 Oxygen Delivery Method Room Air 07/14/23 11:06 BMI result Body Mass Index 21.3 Tobacco/Smoking Status: Tobacco use Status Tobacco use date assessed 07/14/23 07/14/23 11:06 Patient Tobacco Use Status Never used Tobacco 07/14/23 11:06 e-Cigarette/Vaping Use Never Used 07/14/23 11:06 PHQ-9: PHQ-9 Score PHQ-9: Total score 0 07/14/23 11:54 Depression Screening Interpretation: Negative Thrive Assessment: Date of Thrive Assessment Date Thrive assessed 07/14/23 07/14/23 11:06 Currently or been in a relationship where the following occur: no concerns reported Const Other: Physical exam is limited to what patient will allow or is able to do - due to his cognitive/psychiatric disabilities General: no acute distress and alert Limitations: behavioral limitations (non-verbal) HENMT Throat: Yes posterior oropharynx normal and Yes tonsils normal (no TP congestion noted) Neck Neck: Yes no lymphadenopathy and Yes supple Thyroid: Thyroid normal Resp Auscultation: clear to auscultation bilaterally, no rales and no wheezes Cardio Rate: regular rate Rhythm: regular rhythm Heart sounds: no murmurs GI Palpation (GI): Soft to palpation and nontender Auscultation: normal bowel sounds General: Yes no CVA tenderness Back/Spine/Pelvis Back: no CVA tenderness Skin Rashes: no rashes Neuro General: moves all extremities Gait exam (Neuro): Normal gait present Extrem General: Yes no clubbing, cyanosis or edema Assessment and Plan Assessment & Plan (1) Diabetes mellitus: Code(s): E11.9 - Type 2 diabetes mellitus without complications Qualifiers: Diabetes mellitus type: type 2 Diabetes mellitus retirement insulin use: without computer terminal operator use Diabetes mellitus complication status: without complication Qualified Code(s): E11.9 - Type 2 diabetes mellitus without complications Plan: His HgbA1c was at 5.3% when last checked on 10/18/2022 (in-office HgbA1c was at 5.4% back in March 2022) - goal is < 7.0% Reinforced diabetic diet Continue Metformin 500 mg 1/2 tablet BID (2) Mixed hyperlipidemia: Code(s): E78.2 - Mixed hyperlipidemia Plan: Reinforced low cholesterol diet Will recheck his labs and fasting lipids as scheduled in 3 months (3) Constipation: Code(s): K59.00 - Constipation, unspecified Qualifiers: Constipation type: unspecified constipation type Qualified Code(s): K59.00 - Constipation, unspecified Plan: Encouraged again increased oral fluids and dietary fiber Continue Docusate 100 mg BID (4) Insomnia: Code(s): G47.00 - Insomnia, unspecified Qualifiers: Insomnia type: unspecified Qualified Code(s): G47.00 - Insomnia, unspecified Plan: Continue Trazodone 25 mg BID and Prazosin 1 mg Q HS; he is also on Aripiprazole 10 mg Q HS, which can help with his sleep at night Follow up with psychiatry as scheduled (5) Schizophrenia: Code(s): F20.9 - Schizophrenia, unspecified Qualifiers: Schizophrenia type: unspecified Qualified Code(s): F20.9 - Schizophrenia, unspecified Plan: Continue Aripiprazole 10 mg Q HS, Lamotrigine 25 mg QD, Prazosin 1 mg Q HS and Trazodone 25 mg BID Follow up with psychiatry as scheduled Per request, medical certificate for guardianship forms filled out today and handed back to patient's family Plan To return as scheduled in September 2023 for his annual physical examination Coding Level of Care Code Est Pt Level 3 (42137) Diagnoses Type 2 diabetes mellitus without complication, without long-term current use of insulin E11.9 Diabetes mellitus type: type 2 Diabetes mellitus retirement insulin use: without computer terminal operator use Diabetes mellitus complication status: without complication Mixed hyperlipidemia E78.2 Constipation, unspecified constipation type K59.00 Constipation type: unspecified constipation type Insomnia, unspecified type G47.00 Insomnia type: unspecified Schizophrenia, unspecified type F20.9 Schizophrenia type: unspecified
[2023-07-14 11:06] VITALS: BP 122/72; PULSE 97; O2SAT 98; BMI 21.3
== END 2023-07-14 12:41 | disposition home or self-care (01) ==
PROVIDERS: PCP Internal Medicine; Visit Provider Internal Medicine
DX: E11.69 Type 2 diabetes mellitus with other specified complication (principal); F20.9 Schizophrenia, unspecified; E78.2 Mixed hyperlipidemia; K59.00 Constipation, unspecified; G47.00 Insomnia, unspecified
CPT/HCPCS: 99213

== ENCOUNTER 2023-10-16 17:25 | Outpatient (AMB) | payer OTHER, SELFPAY ==
[2023-10-16 17:45] VITALS: BP 152/96; PULSE 76; O2SAT 96; BMI 21.4
--- NOTE | 2023-10-16 17:45 | A.OFFPC_ITS ---
Vital Signs 10/16/23 17:45 10/16/23 18:06 Height 5 ft 8 in Weight 141 lb BMI 21.4 BP 152/96 H 126/78 Blood Pressure Location Lt brachial Rt brachial Position Sitting Sitting Pulse 76 Pulse Source Pulse Oximeter Pulse Oximetry (%) 96 Oxygen Delivery Method Room Air Intake Visit Reasons: PE- NEEDS PHQ9 + A1C [employer] Officer Required: No Accompanied by: Sister Allergies No Known Allergies Allergy (Mild, Verified 10/16/23 19:21) NONE Medication List - Last Reconciled 10/16/23 by Rasta Barron MD aripiprazole 10 mg PO BEDTIME atorvastatin 10 mg PO BEDTIME 30 days blood sugar diagnostic As directed blood sugar diagnostic (FreeStyle Lite Strips) 1 strip miscellaneous TID blood-glucose meter (FreeStyle Lite Meter kit) As directed docusate sodium 100 mg PO BID lamotrigine 25 mg PO DAILY lancets (FreeStyle Lancets) As directed 3 times a day metformin ER 500 mg PO DAILY 30 days prazosin 1 mg PO QPM trazodone 25 mg PO BID Tobacco use date assessed: 07/14/23 Dental Screening Dental Screen Date: 07/14/23 HPI PE- NEEDS PHQ9 + A1C HPI Details Patient was brought in today for his annual physical examination - is accompanied as usual by his sister, who is his HCP His sister states that patient has been doing as well as he can be and that everything seems to be okay at this time States that patient still prefers to just stay in his room on his own all day if he is allowed to He is still under the care of psychiatry for his issues and she thinks that his current medications do help him sleep better at night Patient has had no complaints of headaches, dizziness, chest pains or SOB; he has had no recent cough/cold symptoms His sister states that he eats well and has had no problems with bowel or bladder issues although he sometimes stays in the bathroom for a long time - she suspects that he may have some constipation and he has stool softeners that he takes daily No nausea/vomiting, no abdominal pain noted He was referred for screening colonoscopy about 2 to 3 years ago but he refused to go for his appointment back then He instead had Cologuard testing done last year in November 2022 - Cologuard came back negative He needs a few of his Rx refilled He has not been able to get his follow up labs done yet - his sister states that she will bring him over to the lab to get them done as soon as possible [facility] Medical History Abdominal pain Constipation Schizophrenia Insomnia Mixed hyperlipidemia Diabetes mellitus Surgical History No pertinent past surgical history Family History Father Chronic mental illness Hypertension Diabetes CVD (cardiovascular disease) Mother Diabetes Hypertension CVD (cardiovascular disease) Sister Diabetes Social History Housing: House Alcohol intake: never Patient Tobacco Use Status: Never used Tobacco e-Cigarette/Vaping Use: Never Used Second Hand Smoke Exposure: No service: No Current occupational status: disabled Cognitive needs: Yes Hearing needs: No Vision needs: No Questionnaire Thrive Questionnaire Date Thrive assessed: 07/14/23 ELDA-7 AMB Questionnaire ELDA-7 Date ELDA - 7 assessed: 07/14/23 Source: Developed by Drs. Ethan Coreas, Belen Trejo, Carlos Sanchez and colleagues, with an educational shefali from [employer]. Review of Systems Const Details: Information is obtained primarily from patient's sister and may be somewhat limited as patient is not able to communicate appropriately due to his psychiatric disorder Denies chills, Denies fatigue, Denies fever(s) and Denies headache(s) ENT Denies dysphagia, Denies dizziness, Denies otalgia, Denies headache(s), Denies nasal congestion, Denies odynophagia and Denies sore throat Card Denies chest pain, Denies palpitations and Denies dyspnea Resp Denies cough and Denies dyspnea GI Denies abdominal pain, Denies constipation, Denies dysphagia, Denies diarrhea, Denies nausea, Denies odynophagia and Denies vomiting Denies dysuria, Denies nocturia and Denies urinary frequency Musc Denies arthralgias and Denies joint swelling Skin/Breast Reports dry skin (especially on both feet) and Denies rash Neuro Denies dizziness and Denies headache(s) Endo Denies fatigue and Denies palpitations Cristobal/Lymph Denies easy bruising Physical exam (Primary Care) Vital Signs: Last Vital Signs Pulse 76 10/16/23 17:45 BP 126/78 10/16/23 18:06 Pulse Ox 96 10/16/23 17:45 Oxygen Delivery Method Room Air 10/16/23 17:45 BMI result Body Mass Index 21.4 Tobacco/Smoking Status: Tobacco use Status Tobacco use date assessed 07/14/23 10/16/23 17:46 Patient Tobacco Use Status Never used Tobacco 10/16/23 17:46 e-Cigarette/Vaping Use Never Used 10/16/23 17:46 Thrive Assessment: Date of Thrive Assessment Date Thrive assessed 07/14/23 10/16/23 17:46 Const Other: Physical exam is limited to what patient will allow or is able to do - due to his cognitive/psychiatric disabilities General: no acute distress and alert Limitations: behavioral limitations (non-verbal) HENMT Head: Yes normocephalic Ears: TM's normal bilaterally and EAC's normal General nose exam: Normal external nose present Face and sinus: Yes normal facial exam Throat: Yes posterior oropharynx normal and Yes tonsils normal (no TP congestion noted) Neck Neck: Yes no lymphadenopathy and Yes supple Resp Auscultation: clear to auscultation bilaterally, no rales and no wheezes Cardio Rate: regular rate Rhythm: regular rhythm Heart sounds: no murmurs GI Palpation (GI): Soft to palpation and nontender Auscultation: normal bowel sounds General: Yes no CVA tenderness Back/Spine/Pelvis Back: no CVA tenderness Skin General skin exam: no rashes or lesions noted Neuro General: moves all extremities Gait exam (Neuro): Normal gait present Extrem General: Yes no clubbing, cyanosis or edema Results AMB Hemoglobin A1c AMB Hemoglobin A1c 5.6 % Last Edit by REJI Earl on 10/16/23 18:13 Results Reviewed Results Reviewed: Laboratory Last Values Hgb A1c (Clinic) 5.6 % (4.0-6.0) 10/16/23 18:13 Assessment and Plan Assessment & Plan (1) Annual physical exam: Code(s): Z00.00 - Encounter for general adult medical examination without abnormal findings Plan: Patient was not able to get his previously ordered labs done yet; his sister states that she will try to bring him over to the lab and get them done MARIN He is up-to-date with his colon cancer screening - had his Cologuard testing done in November 2022, which came out negative (2) Diabetes mellitus: Code(s): E11.9 - Type 2 diabetes mellitus without complications Qualifiers: Diabetes mellitus type: type 2 Diabetes mellitus terminal clerk insulin use: without terminal clerk use Diabetes mellitus complication status: without complication Qualified Code(s): E11.9 - Type 2 diabetes mellitus without complications Plan: His in-office HgbA1c done today is at 5.6% (was at 5.3% when last checked in September 2022) - goal is at least < 7.0% but ideally <6.5% Reinforced diabetic diet Continue Metformin ER 500 mg QD (3) Mixed hyperlipidemia: Code(s): E78.2 - Mixed hyperlipidemia Plan: His sister states that she will help patient go and get his labs done MARIN Reinforced low cholesterol diet Continue Atorvastatin 10 mg Q HS Will recheck his fasting lipids and labs in 6 months for follow-up (4) Constipation: Code(s): K59.00 - Constipation, unspecified Qualifiers: Constipation type: unspecified constipation type Qualified Code(s): K59.00 - Constipation, unspecified Plan: Patient has been reportedly doing okay with his daily bowel movements so far Have again encouraged patient's family to make sure he increases his oral fluids and dietary fiber intake Continue Docusate 100 mg BID (5) Insomnia: Code(s): G47.00 - Insomnia, unspecified Qualifiers: Insomnia type: unspecified Qualified Code(s): G47.00 - Insomnia, unspecified Plan: His sister states that what psychiatry currently has him on is helping with his sleep at night - he takes Prazosin 1 mg Q PM and Trazodone 25 mg BID Follow up with psychiatry as scheduled (6) Schizophrenia: Code(s): F20.9 - Schizophrenia, unspecified Qualifiers: Schizophrenia type: unspecified Qualified Code(s): F20.9 - Schizophrenia, unspecified Plan: Continue Aripiprazole 10 mg Q HS, Lamotrigine 25 mg QD, Prazosin 1 mg Q PM and Trazodone 25 mg BID Follow up with psychiatry as scheduled Plan Follow up in 6 months Orders: Orders AMB Hemoglobin A1c Today E11.9 - Type 2 diabetes mellitus without complications Hemoglobin A1c 6 Months E11.9 - Type 2 diabetes mellitus without complications Vitamin B12 and Folate 6 Months E53.8 - Deficiency of other specified B group vitamins Prostate Specific Antigen Scr 6 Months Z00.00 - Encounter for general adult medical examination without abnormal findings Microalbumin, Random (w Creat) 6 Months E11.9 - Type 2 diabetes mellitus without complications Lipid Panel 6 Months E78.00 - Pure hypercholesterolemia, unspecified Complete Blood Count Auto Diff 6 Months D64.9 - Anemia, unspecified Comprehensive [place]. Panel Fast 6 Months E78.00 - Pure hypercholesterolemia, unspecified Vitamin D 25-OH Total 6 Months E55.9 - Vitamin D deficiency, unspecified TSH reflex Free T4 6 Months E78.00 - Pure hypercholesterolemia, unspecified UA CC w/rflx Micro + Cult 6 Months R30.0 - Dysuria Medications: Refilled lancets (FreeStyle Lancets) As directed 3 times a day 100 ea 12RF E11.9 - Type 2 diabetes mellitus without complications blood sugar diagnostic (FreeStyle Lite Strips) 1 strip miscellaneous TID 100 strips 12RF E11.9 - Type 2 diabetes mellitus without complications metformin ER 500 mg PO DAILY 30 days 30 tabs 5RF Coding Level of Care Code Est Pt Prev Care 40-64y(70677) Diagnoses Annual physical exam Z00.00 Type 2 diabetes mellitus without complication, without long-term current use of insulin E11.9 Diabetes mellitus type: type 2 Diabetes mellitus long-term insulin use: without long-term use Diabetes mellitus complication status: without complication Mixed hyperlipidemia E78.2 Constipation, unspecified constipation type K59.00 Constipation type: unspecified constipation type Insomnia, unspecified type G47.00 Insomnia type: unspecified Schizophrenia, unspecified type F20.9 Schizophrenia type: unspecified
[2023-10-16 18:06] VITALS: BP 126/78
== END 2023-10-16 18:11 | disposition home or self-care (01) ==
PROVIDERS: PCP Internal Medicine; Visit Provider Internal Medicine
DX: Z00.00 Encounter for general adult medical examination without abnormal findings (principal); E11.9 Type 2 diabetes mellitus without complications; E78.2 Mixed hyperlipidemia; K59.00 Constipation, unspecified; G47.00 Insomnia, unspecified; F20.9 Schizophrenia, unspecified
CPT/HCPCS: 83036; 99396

== ENCOUNTER 2023-10-18 13:43 | Outpatient (REF) | payer OTHER, SELFPAY ==
[2023-10-18 13:54] LABS: MANUAL DIFF FLAG NO
[2023-10-18 14:25] LABS: Basophils Absolute Auto 0.1 X10*3/uL (0.0-0.2); Basophils Percent Auto 0.8 % (0-2); Eosinophils Absolute Auto 0.4 X10*3/uL (0.0-0.4); Eosinophils Percent Auto 6.6 % (0-4); Hematocrit 40.6 % (42.0-52.0); Imm Gran Abs Auto 0.01 X10*3/uL (0.00-0.03); Imm Gran Pct Auto 0.2 % (0.0-0.4); Lymphocytes Percent Auto 33.3 % (20-40); Mean Corpuscular Volume 93.8 fL (80.0-98.0); Mean Platelet Volume 11.2 fL (9.4-12.4); Monocytes Absolute Auto 0.5 X10*3/uL (0.1-1.2); Monocytes Percent Auto 8.3 % (2-11); Neutrophils Absolute Auto 3.1 x10*3/uL (2.0-8.3); Neutrophils Percent Auto 50.8 % (45-73); Platelet Count 188 X10*3/uL (160-400); Red Blood Count 4.33 X10*6/uL (4.60-5.80); Red Cell Distribution Width 13.3 % (11.0-16.0)
[2023-10-18 14:54] LABS: Alanine Aminotransferase 16 U/L (0-40); Albumin Level 4.4 g/dL (3.5-5.0); Alkaline Phosphatase 54 U/L (39-117); Anion Gap 7 (12-20); Aspartate Amino Transferase 15 U/L (5-37); Bilirubin Total 0.9 mg/dL (0.0-1.0); Blood Urea Nitrogen 20 mg/dL (9-16); Calcium 9.3 mg/dL (8.4-10.2); Carbon Dioxide 30 mmol/L (22-29); Chloride 109 mmol/L (96-108); Cholesterol 212 mg/dL (<200); Estimated Glomerular Filt Rate 60; Glucose Fasting 90 mg/dL (60-99); HDL Cholesterol 60 mg/dL (>40); LDL Cholesterol Calculated 118 mg/dL (<100); Potassium 3.8 mmol/L (3.3-5.1); Sodium 142 mmol/L (135-145); Total Protein 7.5 g/dL (6.5-8.0); Triglycerides 171 mg/dL (<150)
[2023-10-18 15:10] LABS: TSH reflex Free T4 3.02 uIU/mL (0.32-4.0); Vitamin D 25-OH Total 20.6 ng/mL (>30)
== END 2023-10-18 13:44 | disposition home or self-care (01) ==
LOC: HO.LAB 13:43
PROVIDERS: PCP Internal Medicine; Visit Provider Internal Medicine
DX: I10 Essential (primary) hypertension (principal); E78.00 Pure hypercholesterolemia, unspecified; E55.9 Vitamin D deficiency, unspecified
CPT/HCPCS: 36415; 80053; 80061; 82306; 84443; 85025

== ENCOUNTER 2023-11-08 13:45 | Outpatient (REF) | payer OTHER, SELFPAY ==
[2023-11-08 13:52] LABS: Appearance Urine Clear; Color Urine Yellow; Glucose Urine UA Negative (Negative); Leukocyte Esterase Urine Negative (Negative); Nitrite Urine Negative (Negative); PH 5.5 (5.0-9.0); Specific Gravity - Urine >= 1.030 (1.005-1.025); Urine Blood Negative (Negative); Urine Ketones Negative (Negative); Urine Protein Negative (Neg-Trace)
[2023-11-08 14:51] LABS: Creatinine Urine 260.72 mg/dL; Microalbum/Creatinine Ratio Ur 6.9 ug/mg cr (<30)
== END 2023-11-08 13:46 | disposition home or self-care (01) ==
LOC: HO.LNP 13:45
PROVIDERS: Visit Provider Internal Medicine
DX: R30.0 Dysuria (principal); E11.9 Type 2 diabetes mellitus without complications
CPT/HCPCS: 81003; 82043; 82570

== ENCOUNTER 2024-04-01 16:37 | Outpatient (AMB) | payer OTHER, SELFPAY ==
[2024-04-01 16:39] VITALS: BP 118/76; PULSE 89; O2SAT 96; BMI 21.0
--- NOTE | 2024-04-01 16:39 | A.OFFPC_ITS ---
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: No Accompanied by: Self / Same As Patient Allergies No Known Allergies Allergy (Mild, Verified 04/01/24 17:16) NONE Medication List - Last Reconciled 04/01/24 by Rasta Barron MD aripiprazole 10 mg PO BEDTIME atorvastatin 10 mg PO BEDTIME 30 days blood sugar diagnostic As directed blood sugar diagnostic (FreeStyle Lite Strips) 1 strip miscellaneous TID blood-glucose meter (FreeStyle Lite Meter kit) As directed docusate sodium 100 mg PO BID lamotrigine 25 mg PO DAILY lancets (FreeStyle Lancets) As directed 3 times a day metformin ER 500 mg PO DAILY 30 days prazosin 1 mg PO QPM trazodone 25 mg PO BID Tobacco use date assessed: 04/01/24 Dental Screening Dental Screen Date: 04/01/24 Did you have a dental visit in the last 12 months?: No Did you have a dental problem in the last 6 months where you did not have access to dental care?: No Was dental information given to patient?: No HPI DM HPI Details Patient was brought in today for his follow up visit - he is accompanied as usual by his sister, who is his HCP Patient is unable to verbalize and his visit today is again done with the help of his sister His sister states that patient has been doing well with no acute issues at present States that patient still prefers to just stay in his room on his own all day if he is allowed to He is under the care of psychiatry for his issues and she feels that his current medications help him sleep better at night Patient has had no recent complaints of headaches, dizziness, chest pains or SOB His sister states that he eats well and has had no problems with bowel or bladder issues although he sometimes stays in the bathroom for a long time - she suspects that he may have some constipation and he has stool softeners that he takes daily No nausea/vomiting, no abdominal pain noted His sister is requesting for Rx for a glucometer and test strips and lancets sent to his local pharmacy She would also like to know if patient's labs done back in September 2023 after his last visit all came back normal His sister would also like for him to get his flu shot today [facility] Medical History (Updated 04/08/24 @ 02:44 by Rasta Barron MD) Nonverbal learning disorder Abdominal pain Constipation Schizophrenia Insomnia Mixed hyperlipidemia Diabetes mellitus Surgical History No pertinent past surgical history Family History Father Chronic mental illness Hypertension Diabetes CVD (cardiovascular disease) Mother Diabetes Hypertension CVD (cardiovascular disease) Sister Diabetes Social History Housing: House Alcohol intake: never Patient Tobacco Use Status: Never used Tobacco e-Cigarette/Vaping Use: Never Used Second Hand Smoke Exposure: No service: No Current occupational status: disabled Cognitive needs: Yes Hearing needs: No Vision needs: No Questionnaire PHQ-9 Over the last 2 weeks, how often have you been bothered by any of the following problems? 1. Little interest or pleasure in doing things: not at all 2. Feeling down, depressed, or hopeless: not at all 3. Trouble falling or staying asleep, or sleeping too much: not at all 4. Feeling tired or having little energy: not at all 5. Poor appetite or overeating: not at all 6. Feeling bad about yourself - or that you are a failure or have let yourself or your family down: not at all 7. Trouble concentrating on things, such as reading the newspaper or watching television: not at all 8. Moving or speaking so slowly that other people could have noticed. Or the opposite - being so fidgety or restless that you have been moving around a lot more than usual: not at all 9. Thoughts that you would be better off or of hurting yourself in some way: not at all Total score: 0 Depression Screening Interpretation: Negative Depression Screening Done: Yes 56761 - PHQ-9 Billing: Yes Source: Developed by Drs. Ethan Coreas, Belen Trejo, Carlos Sanchez and colleagues, with an educational shefali from [employer]. Thrive Questionnaire Date Thrive assessed: 04/01/24 I am a: Patient What is your living situation today?: I have a steady place to live Within the past 12 months, did the food you bought not last and you didn't have the money to get more?: Never true Within the past 12 months, did you worry whether your food would run out before you got money to buy more?: Never true Do you have trouble paying for medicines?: No Do you have trouble getting transportation to medical appointments?: No Do you have trouble paying your heating and electricity bill?: No Do you have trouble taking care of your child, family member or friend?: No Do you have trouble with day-to-day activities such as bathing, preparing meals, shopping, managing finances, etc.?: No Are you currently unemployed and looking for a job?: No Are you interested in more education?: No Please select the resources that you would like help with: None Currently or been in a relationship where the following occur: No concerns reported THRIVE Score: 0 AUDIT C Alcohol Use Questionnaire (AUDIT-C) 1. How often do you have a drink containing alcohol?: Never 3. How often do you have six or more drinks on one occasion?: Never Total Score: 0 Score Reviewed/Action Taken: Yes ELDA-7 AMB Questionnaire ELDA-7 Date ELDA - 7 assessed: 04/01/24 Feeling nervous, anxious, or on edge: 0 = Not at all Not being able to stop or control worryin = Not at all Worrying too much about different things: 0 = Not at all Trouble relaxin = Not at all Being so restless that it is hard to sit still: 0 = Not at all Becoming easily annoyed or irritable: 0 = Not at all Feeling afraid as if something awful might happen: 0 = Not at all Total ELDA-7 score (0-4 normal; 5-9 mild; 10-14 moderate; 15-21 severe): 0 Source: Developed by Drs. Ethan Coreas, Belen Trejo, Carlos Sanchez and colleagues, with an educational shefali from [employer]. Review of Systems Const Details: Information is obtained primarily from patient's sister and may be somewhat limited as patient is not able to communicate appropriately due to his psychiatric issues Denies chills, Denies fatigue, Denies fever(s) and Denies headache(s) ENT Denies dysphagia, Denies dizziness, Denies otalgia, Denies headache(s), Denies nasal congestion, Denies odynophagia and Denies sore throat Card Denies chest pain, Denies palpitations and Denies dyspnea Resp Denies cough and Denies dyspnea GI Denies abdominal pain, Denies constipation, Denies dysphagia, Denies diarrhea, Denies nausea, Denies odynophagia and Denies vomiting Denies dysuria, Denies nocturia and Denies urinary frequency Musc Denies arthralgias and Denies joint swelling Skin/Breast Reports dry skin (especially on both feet) and Denies rash Neuro Denies dizziness and Denies headache(s) Endo Denies fatigue and Denies palpitations Cristobal/Lymph Denies easy bruising Physical exam (Primary Care) Vital Signs: Last Vital Signs Pulse 89 04/01/24 16:39 BP 118/76 04/01/24 16:39 Pulse Ox 96 04/01/24 16:39 Oxygen Delivery Method Room Air 04/01/24 16:39 BMI result Body Mass Index 21.0 Tobacco/Smoking Status: Tobacco use Status Tobacco use date assessed 04/01/24 04/01/24 16:42 Patient Tobacco Use Status Never used Tobacco 04/01/24 16:42 e-Cigarette/Vaping Use Never Used 04/01/24 16:42 PHQ-9: PHQ-9 Score PHQ-9: Total score 0 04/01/24 17:30 Depression Screening Interpretation: Negative Thrive Assessment: Date of Thrive Assessment Date Thrive assessed 04/01/24 04/01/24 16:42 Currently or been in a relationship where the following occur: No concerns reported Const Other: Physical exam is limited to what patient will allow or is able to do - due to his cognitive/psychiatric disabilities General: no acute distress and alert Limitations: behavioral limitations (non-verbal) HENMT Ears: TM's normal bilaterally and EAC's normal Throat: Yes posterior oropharynx normal and Yes tonsils normal (no TP congestion noted) Neck Neck: Yes supple and No lymphadenopathy Thyroid: Thyroid normal Resp Auscultation: clear to auscultation bilaterally, no rales and no wheezes Cardio Rate: regular rate Rhythm: regular rhythm Heart sounds: no murmurs GI Palpation (GI): Soft to palpation and nontender Auscultation: normal bowel sounds General: Yes no CVA tenderness Back/Spine/Pelvis Back: no CVA tenderness Thoracic/Lumbar Spine: No lumbar spinal tenderness Skin Rashes: no rashes Neuro General: moves all extremities Gait exam (Neuro): Normal gait present Extrem General: Yes no clubbing, cyanosis or edema Office Procedures Flu Questionnaire Does the patient have a severe egg allergy?: No Does the patient have severe life threatening allergies?: No Does the patient have a fever or illness today?: No Has the patient ever had Guillain-Sesser Syndrome?: No Has the patient ever had any past reaction to a flu shot?: No Results AMB Hemoglobin A1c AMB Hemoglobin A1c 6.1 % Last Edit by HEIDI Saravia on 04/01/24 17 :31 Immunizations Fluarix Triv [id number] (PF) 45 mcg (15 mcg x 3)/0.5 mL IM syringe Performing Provider: Rasta Barron MD [facility] Administered by: HEIDI Saravia on 04/01/24 17:30 Dose Route Admin Location Dispensed Lot Number Expiration Date NDC Jointer Submarine Cable 0.5 mL IM Right Deltoid 0.5 mL [id number] 04/01/24 45986-545-20 [facility] [employer] VIS Given Date VIS Provided VIS Publication Date 04/01/24 Single Vaccine 20 Eligibility Eligibility Date Funding Source Not [facility] Eligible 04/01/24 Private Results Reviewed Results Reviewed: Laboratory Last Values Hgb A1c (Clinic) 6.1 % (4.0-6.0) H 04/01/24 17:29 Laboratory Tests 10/18/23 11/08/23 13:42 12:00 WBC 6.0 Hgb 13.0 L Hct 40.6 L Plt Count 188 D Sodium 142 Potassium 3.8 Creatinine 1.26 Estimated GFR 60 Fasting Glucose 90 Calcium 9.3 Total Bilirubin 0.9 AST 15 ALT 16 Total Protein 7.5 Albumin 4.4 Triglycerides 171 H Cholesterol 212 H LDL Cholesterol, Calc 118 H HDL Cholesterol 60 25-OH Vitamin D Total 20.6 L TSH 3.02 Ur Specific [place] >= 1.030 H Urine Protein Negative Urine Glucose (UA) Negative Urine Blood Negative Urine Nitrite Negative Ur Leukocyte Esterase Negative Microalb/Creat Ratio 6.9 Coding Level of Care Code Est Pt Level 4 (30000) Diagnoses Type 2 diabetes mellitus without complication, without long-term current use of insulin E11.9 Diabetes mellitus type: type 2 Diabetes mellitus intermediate school teacher insulin use: without intermediate school teacher use Diabetes mellitus complication status: without complication Mixed hyperlipidemia E78.2 Constipation, unspecified constipation type K59.00 Constipation type: unspecified constipation type Insomnia, unspecified type G47.00 Insomnia type: unspecified Schizophrenia, unspecified type F20.9 Schizophrenia type: unspecified Nonverbal learning disorder F81.89 Additional Codes PHQ-9 - 82078 - PHQ-9 Billing: Yes ([id number]) Assessment & Plan Assessment & Plan (1) Diabetes mellitus: Code(s): E11.9 - Type 2 diabetes mellitus without complications Category: Medical Qualifiers: Diabetes mellitus type: type 2 Diabetes mellitus nursing home insulin use: without nursing home use Diabetes mellitus complication status: without complication Qualified Code(s): E11.9 - Type 2 diabetes mellitus without complications Plan: His in-office HgbA1c done today is at 6.1% (was previously at 5.6% a few months ago) - goal is at least < 7.0% but ideally <6.5% Reinforced diabetic diet Continue Metformin ER 500 mg QD Per request, Rx for glucometer, test strips and lancets are sent over electronically to his local pharmacy (2) Mixed hyperlipidemia: Code(s): E78.2 - Mixed hyperlipidemia Category: Medical Plan: Results of his labs done back in September 2023 reviewed and discussed with patient's sister - have advised that patient's serum TG level has again increased from previous Reinforced low cholesterol diet Continue Atorvastatin 10 mg Q HS Will have patient recheck his fasting lipids and labs again in 6 months for follow-up (3) Constipation: Code(s): K59.00 - Constipation, unspecified Category: Medical Qualifiers: Constipation type: unspecified constipation type Qualified Code(s): K59.00 - Constipation, unspecified Plan: Patient has been reportedly doing okay with his daily bowel movements so far Have again encouraged patient's family to make sure he increases his oral fluids and dietary fiber intake Continue Docusate 100 mg BID (4) Insomnia: Code(s): G47.00 - Insomnia, unspecified Category: Medical Qualifiers: Insomnia type: unspecified Qualified Code(s): G47.00 - Insomnia, unspecified Plan: His sister states that what psychiatry currently has him on is helping with his sleep at night - he takes Prazosin 1 mg Q PM and Trazodone 25 mg BID Follow up with psychiatry as scheduled (5) Schizophrenia: Code(s): F20.9 - Schizophrenia, unspecified Category: Medical Qualifiers: Schizophrenia type: unspecified Qualified Code(s): F20.9 - Schizophreni a, unspecified Plan: Continue Aripiprazole 10 mg Q HS, Lamotrigine 25 mg QD, Prazosin 1 mg Q PM and Trazodone 25 mg BID Follow up with psychiatry as scheduled (6) Nonverbal learning disorder: Code(s): F81.89 - Other developmental disorders of scholastic skills Category: Medical Plan: This is most likely the reason for his non-verbalization Plan As requested, flu vaccine given to patient today To return in 6 months for his next annual physical examination Have advised patient's sister to help patient get his labs done just BEFORE he comes back in September 2024 for his annual PE Orders: Orders Lipid Panel 10/05/24 E78.00 - Pure hypercholesterolemia, unspecified, Z00.00 - Encounter for general adult medical examination without abnormal findings TSH reflex Free T4 10/05/24 E78.00 - Pure hypercholesterolemia, unspecified, Z00.00 - Encounter for general adult medical examination without abnormal findings UA CC w/rflx Micro + Cult 10/05/24 R30.0 - Dysuria, Z00.00 - Encounter for general adult medical examination without abnormal findings Complete Blood Count Auto Diff 10/05/24 D64.9 - Anemia, unspecified, Z00.00 - Encounter for general adult medical examination without abnormal findings Comprehensive [place]. Panel Fast 10/05/24 E78.00 - Pure hypercholesterolemia, unspecified, Z00.00 - Encounter for general adult medical examination without abnormal findings Hemoglobin A1c 10/05/24 E11.9 - Type 2 diabetes mellitus without complications, Z00.00 - Encounter for general adult medical examination without abnormal findings Microalbumin, Random (w Creat) 10/05/24 E11.9 - Type 2 diabetes mellitus without complications, Z00.00 - Encounter for general adult medical examination without abnormal findings Vitamin D 25-OH Total 10/05/24 E55.9 - Vitamin D deficiency, unspecified, Z00.00 - Encounter for general adult medical examination without abnormal findings Vitamin B12 and Folate 10/05/24 E53.8 - Deficiency of other specified B group vitamins, Z00.00 - Encounter for general adult medical examination without abnormal findings Influenza [id number] Immunization 04/01/24 Z23 - Encounter for immunization AMB Hemoglobin A1c 04/01/24 Z13.9 - Encounter for screening, unspecified Medications: Refilled blood-glucose meter (FreeStyle Lite Meter kit) As directed 1 ea 0RF E11.9 - Type 2 diabetes mellitus without complications lancets (FreeStyle Lancets) As directed 3 times a day 100 ea 12RF E11.9 - Type 2 diabetes mellitus without complications blood sugar diagnostic (FreeStyle Lite Strips) 1 strip miscellaneous TID 100 strips 12RF E11.9 - Type 2 diabetes mellitus without complications
== END 2024-04-01 17:27 | disposition home or self-care (01) ==
PROVIDERS: PCP Internal Medicine; Visit Provider Internal Medicine
DX: Z23 Encounter for immunization (principal); Z13.9 Encounter for screening, unspecified

== ENCOUNTER → 2024-04-01 16:37 | Outpatient (BNVA) | payer OTHER, SELFPAY | PROVIDERS: PCP Internal Medicine; Visit Provider Internal Medicine | DX: E11.9 Type 2 diabetes mellitus without complications (principal); E78.2 Mixed hyperlipidemia; K59.00 Constipation, unspecified; G47.00 Insomnia, unspecified; F20.9 Schizophrenia, unspecified; F81.89 Other developmental disorders of scholastic skills | CPT/HCPCS: 83036; 90471; 90656; 96127; 99212 ==

== ENCOUNTER 2024-07-23 10:11 | Outpatient (REF) | payer OTHER, SELFPAY ==
[2024-07-23 10:42] LABS: MANUAL DIFF FLAG NO
[2024-07-23 11:52] LABS: Basophils Absolute Auto 0.1 X10*3/uL (0.0-0.2); Basophils Percent Auto 1.2 % (0-2); Eosinophils Absolute Auto 0.5 X10*3/uL (0.0-0.4); Eosinophils Percent Auto 7.6 % (0-4); Hematocrit 44.1 % (42.0-52.0); Hemoglobin 14.1 g/dl (14.0-18.0); Imm Gran Abs Auto 0.01 X10*3/uL (0.00-0.03); Imm Gran Pct Auto 0.2 % (0.0-0.4); Lymphocytes Absolute Auto 1.9 X10*3/uL (1.2-4.9); Lymphocytes Percent Auto 30.8 % (20-40); Mean Corpuscular Hemoglobin 29.5 pg (27.0-33.0); Mean Corpuscular Volume 92.3 fL (80.0-98.0); Mean Platelet Volume 11.3 fL (9.4-12.4); Monocytes Absolute Auto 0.6 X10*3/uL (0.1-1.2); Monocytes Percent Auto 9.5 % (2-11); Neutrophils Absolute Auto 3.1 x10*3/uL (2.0-8.3); Neutrophils Percent Auto 50.7 % (45-73); Platelet Count 223 X10*3/uL (160-400); Red Blood Count 4.78 X10*6/uL (4.60-5.80); Red Cell Distribution Width 13.2 % (11.0-16.0); White Blood Count 6.1 X10*3/uL (4.8-10.8)
[2024-07-23 11:54] LABS: Appearance Urine Clear; Color Urine Yellow; Glucose Urine UA Negative (Negative); Leukocyte Esterase Urine Negative (Negative); Nitrite Urine Negative (Negative); PH 5.5 (5.0-9.0); Specific Gravity - Urine >= 1.030 (1.005-1.025); Urine Blood Negative (Negative); Urine Ketones Negative (Negative); Urine Protein Negative (Neg-Trace)
[2024-07-23 12:16] LABS: Estimated Average Glucose 123 mg/dL; Hemoglobin A1c % 5.9 % (<6.0)
[2024-07-23 12:35] LABS: Creatinine Urine 243.36 mg/dL; Microalbum/Creatinine Ratio Ur 4.9 ug/mg cr (<30)
[2024-07-23 12:39] LABS: Alanine Aminotransferase 21 U/L (0-40); Albumin Level 4.5 g/dL (3.5-5.0); Alkaline Phosphatase 67 U/L (39-117); Anion Gap 8 (12-20); Aspartate Amino Transferase 23 U/L (5-37); Bilirubin Total 0.9 mg/dL (0.0-1.0); Blood Urea Nitrogen 22 mg/dL (9-16); Calcium 9.5 mg/dL (8.4-10.2); Carbon Dioxide 30 mmol/L (22-29); Chloride 108 mmol/L (96-108); Cholesterol 211 mg/dL (<200); Estimated Glomerular Filt Rate > 60; Glucose Fasting 72 mg/dL (60-99); HDL Cholesterol 70 mg/dL (>40); LDL Cholesterol Calculated 124 mg/dL (<100); Potassium 3.9 mmol/L (3.3-5.1); Sodium 142 mmol/L (135-145); TSH reflex Free T4 4.75 uIU/mL (0.32-4.0); Total Protein 7.5 g/dL (6.5-8.0); Triglycerides 87 mg/dL (<150)
[2024-07-23 12:49] LABS: Folate 12.2 ng/mL (> or = 4.0); Prostate Specific Antigen Scr 1.36 ng/mL (<0.05-4.0); Vitamin B12 293 pg/mL (200-900)
[2024-07-23 13:23] LABS: Free T4 (Free Thyroxine) 1.03 ng/dL (0.71-1.85)
[2024-07-26 10:03] LABS: TS Negative Control Passed; TS Panel A 0; TS Panel B 0; TS Positive Control Passed; TSpotTB Negative (Negative)
== END 2024-07-23 10:12 | disposition home or self-care (01) ==
LOC: HO.LAB 10:11
PROVIDERS: PCP Internal Medicine; Visit Provider Internal Medicine
DX: Z00.00 Encounter for general adult medical examination without abnormal findings (principal); E11.9 Type 2 diabetes mellitus without complications; D64.9 Anemia, unspecified; E78.00 Pure hypercholesterolemia, unspecified; R30.0 Dysuria; E53.8 Deficiency of other specified B group vitamins; E55.9 Vitamin D deficiency, unspecified; Z11.1 Encounter for screening for respiratory tuberculosis
CPT/HCPCS: 36415; 80053; 80061; 81003; 82043; 82306; 82570; 82607; 82746; 83036; 84153; 84439; 84443; 85025; 86481

== ENCOUNTER 2024-12-05 08:52 | Outpatient (REF) | payer OTHER, SELFPAY ==
[2024-12-05 10:19] LABS: MANUAL DIFF FLAG NO
[2024-12-05 11:15] LABS: Hematocrit 41.8 % (42.0-52.0); Hemoglobin 13.8 g/dl (14.0-18.0); Imm Gran Abs Auto 0.02 X10*3/uL (0.00-0.03); Imm Gran Pct Auto 0.3 % (0.0-0.4); Lymphocytes Absolute Auto 2.1 X10*3/uL (1.2-4.9); Mean Corpuscular HGB Conc 33.0 g/dl (31.0-36.0); Mean Corpuscular Hemoglobin 30.0 pg (27.0-33.0); Mean Corpuscular Volume 90.9 fL (80.0-98.0); NRBC Abs Auto 0.000 X10*3/uL (0.0-0.012); NRBC Pct Auto 0.0 /100WBC (0.0-0.2); Platelet Count 141 X10*3/uL (160-400); Red Blood Count 4.60 X10*6/uL (4.60-5.80); White Blood Count 6.9 X10*3/uL (4.8-10.8)
[2024-12-05 11:18] LABS: Appearance Urine Clear; Glucose Urine UA Negative (Negative); PH 5.0 (5.0-9.0); Specific Gravity - Urine 1.025 (1.005-1.025)
[2024-12-05 11:47] LABS: Alanine Aminotransferase 24 U/L (0-40); Albumin Level 5.0 g/dL (3.5-5.0); Alkaline Phosphatase 58 U/L (39-117); Anion Gap 10 (12-20); Aspartate Amino Transferase 27 U/L (5-37); Blood Urea Nitrogen 21 mg/dL (9-16); Calcium 9.3 mg/dL (8.4-10.2); Carbon Dioxide 29 mmol/L (22-29); Chloride 107 mmol/L (96-108); Cholesterol 177 mg/dL (<200); Estimated Glomerular Filt Rate > 60; HDL Cholesterol 61 mg/dL (>40); Potassium 3.9 mmol/L (3.3-5.1); Sodium 142 mmol/L (135-145); Total Protein 7.8 g/dL (6.5-8.0); Triglycerides 101 mg/dL (<150)
[2024-12-05 12:14] LABS: Microalbum/Creatinine Ratio Ur 6.0 ug/mg cr (<30)
[2024-12-05 12:28] LABS: Folate 13.6 ng/mL (> or = 4.0); Free T4 (Free Thyroxine) 0.93 ng/dL (0.71-1.85); Vitamin B12 254 pg/mL (200-900)
== END 2024-12-05 08:53 | disposition home or self-care (01) ==
LOC: HO.LAB 08:52
PROVIDERS: PCP Internal Medicine
DX: Z00.00 Encounter for general adult medical examination without abnormal findings (principal); Z23 Encounter for immunization; R30.0 Dysuria; E78.00 Pure hypercholesterolemia, unspecified; E55.9 Vitamin D deficiency, unspecified; E53.8 Deficiency of other specified B group vitamins; D64.9 Anemia, unspecified; E11.9 Type 2 diabetes mellitus without complications; E78.2 Mixed hyperlipidemia; K59.00 Constipation, unspecified; G47.00 Insomnia, unspecified; F20.9 Schizophrenia, unspecified; F81.89 Other developmental disorders of scholastic skills; R03.0 Elevated blood-pressure reading, without diagnosis of hypertension
CPT/HCPCS: 36415; 80053; 80061; 81003; 82043; 82306; 82570; 82607; 82746; 83036; 84439; 84443; 85025; 90471; 90715; 96127; 99396

== ENCOUNTER 2024-12-05 08:52 | Outpatient (AMB) | payer OTHER, SELFPAY ==
--- NOTE | 2024-12-05 08:40 | A.OFFPC_ITS ---
Vital Signs 12/05/24 08:57 12/05/24 09:41 Height 5 ft 8 in Weight 134 lb 4 oz BMI 20.4 BP 140/90 H 138/86 Blood Pressure Location Lt brachial Lt brachial Position Sitting Sitting Respiration 18 Pulse 67 Pulse Source Pulse Oximeter Temp 97 F Temp Source Temporal Artery Scan Pulse Oximetry (%) 98 Oxygen Delivery Method Room Air Intake Visit Reasons: annual exam- A1C needed Costume Rental Clerk Required: Yes Costume Rental Clerk Name: mexican [id number]/Alec Accompanied by: Sister Allergies No Known Allergies Allergy (Mild, Verified 12/05/24 09:19) NONE Medication List - Last Reconciled 12/05/24 by CLAUS Miller aripiprazole 10 mg PO BEDTIME atorvastatin 10 mg PO BEDTIME 30 days blood sugar diagnostic As directed blood sugar diagnostic (FreeStyle Lite Strips) 1 strip miscellaneous TID blood-glucose meter (FreeStyle Lite Meter kit) As directed docusate sodium 100 mg PO BID lamotrigine 25 mg PO DAILY lancets (FreeStyle Lancets) As directed 3 times a day metformin ER 500 mg PO DAILY 30 days prazosin 1 mg PO QPM trazodone 25 mg PO BID Tobacco use date assessed: 12/05/24 Dental Screening Dental Screen Date: 12/05/24 Did you have a dental visit in the last 12 months?: No Did you have a dental problem in the last 6 months where you did not have access to dental care?: No Was dental information given to patient?: No HPI annual exam- A1C needed HPI Details Patient is presenting for annual physical. Patient is accompanied by his sister. The patient is nonverbal due to mental illness. Information was obtained from his sister. The sister brought in a HCP form and needed assistance to fill this out. Dentist: The patient refused Eye: Refused Snellen: Right: Left: Corrected vision: He does not wear glasses STI screening: Colonoscopy: cologuard negative 2022 PHQ-9: Flu: Usually take COVID: x2 Tdap: due will give in office today Diet: regular Exercise: no BP slightly elevated, sister believes that is due to the stress of being in the office. Reports that they did not check his blood pressure at home The patient is diabetic, will start lisinopril 2.5 mg for renal protection and also have the patient follow up for blood pressure check by nurse. [facility] Medical History Nonverbal learning disorder Abdominal pain Constipation Schizophrenia Insomnia Mixed hyperlipidemia Diabetes mellitus Surgical History No pertinent past surgical history Family History Father Chronic mental illness Hypertension Diabetes CVD (cardiovascular disease) Mother Diabetes Hypertension CVD (cardiovascular disease) Sister Diabetes Social History Housing: House Alcohol intake: never Patient Tobacco Use Status: Never used Tobacco e-Cigarette/Vaping Use: Never Used Second Hand Smoke Exposure: No service: No Current occupational status: disabled Cognitive needs: Yes Hearing needs: No Vision needs: No Questionnaire PHQ-9 Over the last 2 weeks, how often have you been bothered by any of the following problems? 1. Little interest or pleasure in doing things: not at all 2. Feeling down, depressed, or hopeless: not at all 3. Trouble falling or staying asleep, or sleeping too much: not at all 4. Feeling tired or having little energy: not at all 5. Poor appetite or overeating: not at all 6. Feeling bad about yourself - or that you are a failure or have let yourself or your family down: not at all 7. Trouble concentrating on things, such as reading the newspaper or watching television: not at all 8. Moving or speaking so slowly that other people could have noticed. Or the opp osite - being so fidgety or restless that you have been moving around a lot more than usual: not at all 9. Thoughts that you would be better off or of hurting yourself in some way: not at all Total score: 0 Depression Screening Interpretation: Negative Depression Screening Done: Yes 18172 - PHQ-9 Billing: Yes Source: Developed by Drs. Ethan Coreas, Belen Trejo, Carlos Sanchez and colleagues, with an educational shefali from [employer]. Thrive Questionnaire Date Thrive assessed: 12/05/24 I am a: Patient What is your living situation today?: I have a steady place to live Within the past 12 months, did the food you bought not last and you didn't have the money to get more?: Never true Within the past 12 months, did you worry whether your food would run out before you got money to buy more?: Never true Do you have trouble paying for medicines?: No Do you have trouble getting transportation to medical appointments?: No Do you have trouble paying your heating and electricity bill?: No Do you have trouble taking care of your child, family member or friend?: No Do you have trouble with day-to-day activities such as bathing, preparing meals, shopping, managing finances, etc.?: No Are you currently unemployed and looking for a job?: No Are you interested in more education?: No Please select the resources that you would like help with: None Currently or been in a relationship where the following occur: No concerns reported THRIVE Score: 0 AUDIT C Alcohol Use Questionnaire (AUDIT-C) 1. How often do you have a drink containing alcohol?: Never 3. How often do you have six or more drinks on one occasion?: Never Total Score: 0 Score Reviewed/Action Taken: Yes ELDA-7 AMB Questionnaire ELDA-7 Date ELDA - 7 assessed: 12/05/24 Feeling nervous, anxious, or on edge: 0 = Not at all Not being able to stop or control worryin = Not at all Worrying too much about different things: 0 = Not at all Trouble relaxin = Not at all Being so restless that it is hard to sit still: 0 = Not at all Becoming easily annoyed or irritable: 0 = Not at all Feeling afraid as if something awful might happen: 0 = Not at all Total ELDA-7 score (0-4 normal; 5-9 mild; 10-14 moderate; 15-21 severe): 0 Source: Developed by Drs. Ethan Coreas, Belen Trejo, Carlos Sanchez and colleagues, with an educational shefali from [employer]. ELDA-7 Assessment Billing ELDA-7 Assessment Tool: ELDA-7 Assessment 02332 Review of Systems Const Details: Limited information due to the patient cognitive disorder. The patient is nonverbal due to his psychiatric disorder. Information obtained from a sister Denies headache(s) Eyes Denies loss of vision ENT Denies vertigo, Denies dizziness, Denies headache(s) and Denies sore throat Card Denies chest pain, Denies leg edema and Denies lightheadedness Resp Denies cough, Denies hemoptysis and Denies wheezing GI Denies abdominal pain, Denies melena, Denies constipation, Denies diarrhea and Denies vomiting Denies dysuria, Denies urinary frequency and Denies urinary urgency Musc Denies arthralgias, Denies joint swelling, Denies numbness and Denies tingling Neuro Denies Abnormal speech present, Denies behavioral changes, Denies vertigo, Denies dizziness, Denies headache(s), Denies loss of vision, Denies memory loss, Denies numbness and Denies tingling Psych Denies anxiety, Denies behavioral changes, Denies depression, Denies memory loss and Denies panic attacks Cristobal/Lymph Denies easy bleeding and Denies easy bruising Aller/Immun Denies wheezing Physical exam (Primary Care) Vital Signs: Last Vital Signs Temp 97 F 12/05/24 08:57 Pulse 67 12/05/24 08:57 Resp 18 12/05/24 08:57 BP 138/86 12/05/24 09:41 Pulse Ox 98 12/05/24 08:57 Oxygen Delivery Method Room Air 12/05/24 08:57 BMI result Body Mass Index 20.4 Tobacco/Smoking Status: Tobacco use Status Tobacco use date assessed 12/05/24 12/05/24 09:07 Patient Tobacco Use Status Never used Tobacco 12/05/24 08:42 e-Cigarette/Vaping Use Never Used 12/05/24 08:42 PHQ-9: PHQ-9 Score PHQ-9: Total score 0 12/05/24 09:35 Depression Screening Interpretation: Negative Thrive Assessment: Date of Thrive Assessment Date Thrive assessed 12/05/24 12/05/24 09:07 Currently or been in a relationship where the following occur: No concerns reported Const General: no acute distress, alert and awake Nutritional Appearance: average body habitus HENMT Ears: TM's normal bilaterally General nose exam: Normal nasal mucous membranes and turbinates present Eyes Conjunctivae: conjunctivae normal Sclerae: sclerae normal Pupils: Equal, round and reactive pupils present Neck Neck: Yes no lymphadenopathy and Yes no JVD Thyroid: Thyroid normal Carotids: no bruits Resp Effort & Inspection: normal respiratory effort and not tachypneic Auscultation: clear to auscultation bilaterally, no crackles, no rales, no rhonchi and no wheezes Cardio Rate: regular rate Rhythm: regular rhythm Heart sounds: S1 normal heart sound present, S2 normal heart sound present, no murmurs and normal S1 and S2 GI Palpation (GI): Soft to palpation, nontender, no hepatomegaly and no splenomegaly Auscultation: normal bowel sounds General: Yes no CVA tenderness Back/Spine/Pelvis Back: no CVA tenderness Skin General skin exam: no rashes or lesions noted and dry skin Neuro General: CN's II-XI intact bilaterally Cranial nerves: Yes Equal, round and reactive pupils present Speech: No Abnormal speech present Gait exam (Neuro): Normal gait present Motor exam (neuro): no tremor noted Deep tendon reflexes (DTR's): Right triceps reflex intensity grade: 2+, Left triceps reflex intensity grade: 2+, Rt Biceps (C5, C6): 2+, Left biceps reflex intensity grade: 2+, Right brachioradialis reflex intensity grade: 2+, Left brachioradialis reflex intensity grade: 2+, Right patellar reflex intensity grade: 2+ and Left patellar reflex intensity grade: 2+ Extrem Right upper extremity: full ROM Left upper extremity: full ROM Right lower extremity: full ROM; no edema Left lower extremity: full ROM; no edema Psych Mental Status: mental status grossly normal Speech and movement: Normal speech and movement present Affect: normal affect Attitude: cooperative Thought process: Normal thought process present Results AMB Hemoglobin A1c AMB Hemoglobin A1c 5.4 % Last Edit by Kelsi Schulz MA on 12/05/24 09:37 Immunizations Boostrix Tdap 2.5 Lf unit-8 mcg-5 Lf/0.5 mL intramuscular syringe Performing Provider: CLAUS Miller [facility] Administered by: Katlin Samson CMA on 12/05/24 09:30 Dose Route Admin Location Dispensed Lot Number Expiration Date [facility] Zoo Keeper 0.5 mL IM Left Deltoid 0.5 mL [id number] 02/21/27 48483-670-84 [employer] Total Dispensed Waste 0.5 mL 0 % VIS Given Date VIS Provided VIS Publication Date 12/05/24 Single Vaccine 20 Eligibility Eligibility Date Funding Source Not [facility] Eligible 12/05/24 Private Results Reviewed Results Reviewed: Laboratory Last Values Hgb A1c (Clinic) 5.4 % (4.0-6.0) 12/05/24 09:35 Coding Level of Care Code Est Pt Prev Care 40-64y(38819) Diagnoses Annual physical exam Z00.00 Type 2 diabetes mellitus without complication, without long-term current use of insulin E11.9 Diabetes mellitus complication status: without complication Diabetes mellitus detention insulin use: without detention use Diabetes mellitus type: type 2 Mixed hyperlipidemia E78.2 Constipation, unspecified constipation type K59.00 Constipation type: unspecified constipation type Insomnia, unspecified type G47.00 Insomnia type: unspecified Schizophrenia, unspecified type F20.9 Schizophrenia type: unspecified Nonverbal learning disorder F81.89 Elevated blood pressure reading without diagnosis of hypertension R03.0 Additional Codes PHQ-9 - 05409 - PHQ-9 Billing: Yes ([id number]) ELDA-7 Assessment Billing - ELDA-7 Assessment Tool: ELDA-7 Assessment 61555 ([id number]) Time Spent (min) 39 Assessment & Plan Assessment & Plan (1) Annual physical exam: Code(s): Z00.00 - Encounter for general adult medical examination without abnormal findings Category: Medical Plan: Preventative guidelines reviewed with the patient sister. A1c done in office. And the patient's sister we will be bringing him to get blood work done today. His Cologuard was negative in November 2022. Patient had tetanus shot done [place] today. Assisted the patient's sister fell out the healthcare proxy form. (2) Diabetes mellitus: Code(s): E11.9 - Type 2 diabetes mellitus without complications Category: Medical Qualifiers: Diabetes mellitus complication status: without complication Diabetes mellitus termite exterminator insulin use: without termite exterminator use Diabetes mellitus type: type 2 Qualified Code(s): E11.9 - Type 2 diabetes mellitus without complications Plan: A1c 5.4%-goal is less than 7%. Diabetes well controlled Reinforced diabetic diet Continue Metformin ER 500 mg QD We will continue to monitor fasting glucose and A1c Q 3 months (3) Mixed hyperlipidemia: Code(s): E78.2 - Mixed hyperlipidemia Category: Medical Plan: Results of his labs done back in September 2023 reviewed and discussed with patient's sister - have advised that patient's serum TG level has again increased from previous Reinforced low cholesterol diet Continue Atorvastatin 10 mg Q HS We will be getting blood work done today (4) Constipation: Code(s): K59.00 - Constipation, unspecified Category: Medical Qualifiers: Constipation type: unspecified constipation type Qualified Code(s): K59.00 - Constipation, unspecified Plan: Patient has been reportedly doing okay with his daily bowel movements so far Have again encouraged patient's family to make sure he increases his oral fluids and dietary fiber intake Continue Docusate 100 mg BID (5) Insomnia: Code(s): G47.00 - Insomnia, unspecified Category: Medical Qualifiers: Insomnia type: unspecified Qualified Code(s): G47.00 - Insomnia, unspecified Plan: His sister states that what psychiatry currently has him on is helping with his sleep at night - he takes Prazosin 1 mg Q PM and Trazodone 25 mg BID Follow up with psychiatry as scheduled (6) Schizophrenia: Code(s): F20.9 - Schizophrenia, unspecified Category: Medical Qualifiers: Schizophrenia type: unspecified Qualified Code(s): F20.9 - Schizophrenia, unspecified Plan: Continue Aripiprazole 10 mg Q HS, Lamotrigine 25 mg QD, Prazosin 1 mg Q PM and Trazodone 25 mg BID Follow up with psychiatry as scheduled (7) Nonverbal learning disorder: Code(s): F81.89 - Other developmental disorders of scholastic skills Category: Medical Plan: Patient is nonverbal doses psychiatric disorder. The patient is calm and cooperative in office. Patient sister reports that sometimes he is not as cooperative. (8) Elevated blood pressure reading without diagnosis of hypertension: Code(s): R03.0 - Elevated blood-pressure reading, without diagnosis of hypertension Category: Medical Plan: Patient blood pressure was noted to be elevated in office. Patient's history reports that he gets anxious when he goes to appointments in this could be the reason. The patient is also diabetic, lisinopril 2.5 mg daily ordered for renal protection and a slightly low his blood pressure as well. We will continue to monitor Orders: Orders TDaP Immunization Today Z23 - Encounter for immunization AMB Hemoglobin A1c Today Z13.9 - Encounter for screening, unspecified Medications: New lisinopril 2.5 mg PO DAILY 90 tabs 3RF
[2024-12-05 08:57] VITALS: BP 140/90; PULSE 67; RESP 18; TEMP 36.1; O2SAT 98; BMI 20.4
--- OUTSIDE RECORDS SUMMARY | 2024-12-05 09:12 | XMS_ITS | Clinical Summary ---
[facility] [address] [place] [address] Care Team Providers Care Inventory Assistant Name Role Phone Rasta Barron MD Primary Care Provider Social History Tobacco Use Types Packs/Day Years Used Date Smoking Tobacco: Never Assessed Sex and Gender Information Value Date Recorded Sex Assigned at Not on file Legal Sex Male 12:25 PM EST Gender Identity Not on file Sexual Orientation Not on file Plan of Treatment Health Maintenance Due Date Last Done Comments DTaP,Tdap,and Td Vaccines (1 - Tdap) 1989 Hepatitis B Vaccines (1 of 3 - 19+ 3-dose series) 1989 Pneumococcal Vaccine: 50+ Ye ars (1 of 1 - PCV) 2020 Zoster Vaccines (1 of 2) 2020 Cholesterol Screening (Lipid Panel) 03/29/2022 Colorectal Cancer Screening: Colonoscopy 03/29/2022 HIV Screening 03/29/2022 Hepatitis C Screening 03/29/2022 Social Influencers of Health Screening 03/29/2022 COVID-19 Vaccine ( - 2023-2 5 season) 2023 Depression Screening 05/01/2024 Influenza Vaccine (#1) 2024 HIB Vaccines Aged Out No longer eligi ble based on patient's age to complete this topic HPV Vaccines Aged Out No longer eligi ble based on patient's age to complete this topic Hepatitis A Vaccines Aged Out No long er eligible based on patient's age to complete this topic IPV Vaccines Aged Out No longer eligi ble based on patient's age to complete this topic MMR Vaccines Aged Out No longer eligi ble based on patient's age to complete this topic Meningococcal ACWY Vaccine Aged Out N o longer eligible based on patient's age to complete this topic Meningococcal B Vaccine Aged Out No l onger eligible based on patient's age to complete this topic RSV Immunization Patients Un josé miguel 20 months Aged Out No longer eligible b ased on patient's age to complete this topic Varicella Vaccines Aged Out No longer eligible based on patient's age to complete this topic Care Teams Inventory Assistant Relationship Specialty Start Date End Date Rasta Barron MD [address] [place] [address] [address] [place], [place] PCP - General Internal Medicine 10/13/21
[2024-12-05 09:41] VITALS: BP 138/86
== END 2024-12-05 09:56 | disposition home or self-care (01) ==
LOC: HO.HMCH 08:53
PROVIDERS: PCP Internal Medicine
DX: Z00.00 Encounter for general adult medical examination without abnormal findings (principal); E11.9 Type 2 diabetes mellitus without complications; E78.2 Mixed hyperlipidemia; K59.00 Constipation, unspecified; G47.00 Insomnia, unspecified; F20.9 Schizophrenia, unspecified; F81.89 Other developmental disorders of scholastic skills; R03.0 Elevated blood-pressure reading, without diagnosis of hypertension; Z23 Encounter for immunization; Z13.9 Encounter for screening, unspecified